=== PATIENT | female | born 1955 | race Caucasian/White ===

== ENCOUNTER 2017-09-21 10:53 | Inpatient (IN) ==
[2017-09-21] MEDS ORDERED: Sod Chloride 0.9% Inj 1,000 ML IV.SIG ONE (11:19)
[2017-09-21] MEDS ORDERED: Morphine Inj 4 MG/ML Vial IV.PUSH ONE (11:19)
--- NOTE | 2017-09-21 11:26 | ED ---
HPI General Chief Complaint: Abdominal Pain Stated Complaint: ABD pain/EVAC Time Seen by Provider: 09/21/17 11:35 Source: patient Mode of arrival: EMS Limitations: no limitations History of Present Illness MD complaint: abdominal pain Onset (ago): hour(s) (1) Pain Consistency: constant Location: epigastric Severity: moderate Severity scale (1-10): 6 Quality: fullness and sharp Radiation: none Migration to: no migration Relieving factors: nothing Exacerbating factors: nothing Associated symptoms: nausea Related Data Home Medications Medication Instructions Recorded Confirmed ascorbic acid (vitamin C) [Vitamin 1,000 mg PO Q12H 09/21/17 09/21/17 C] calcium carbonate [Calcium 500] 250 mg PO DAILY 09/21/17 09/21/17 yoxfjdzodryg-[id number]-yyhy-FA-vit K tab PO DAILY 09/21/17 [Multi For Her] omeprazole 20 mg PO DAILY 09/21/17 09/21/17 sertraline 200 mg PO DAILY 09/21/17 09/21/17 venlafaxine 37.5 mg PO DAILY 09/21/17 09/21/17 vitamin E 400 unit PO DAILY 09/21/17 09/21/17 Allergies Allergy/AdvReac Type Severity Reaction Status Date / Time amoxicillin AdvReac Nausea/Vomi Verified 09/21/17 11:04 ting Review of Systems Except as stated in HPI: all other systems reviewed are negative [facility] Medical History Medical History Diverticulosis (Acute) Hernia (Acute) Spleen enlarged (Acute) Tubal ligation status (Acute) Social History Social History Substance History: No History of Abuse Second Hand Smoke Exposure: No Smoking Status: Never smoker How Often Do You Have a Drink Containing Alcohol: Never Recent Travel in [facility] within the Last 8 Weeks: No Immunization History Tetanus Immunization: Unsure Hx Influenza Vaccine This Season: No Exam Narrative Exam Narrative: GENERAL: Well-nourished, well-developed patient in no apparent distress. SKIN: Warm and dry. HEAD: Atraumatic. Normocephalic. EYES: Pupils equal and round. No scleral icterus. No injection or drainage. ENT: No nasal bleeding or discharge. Mucous membranes pink and moist. NECK: Trachea midline. No JVD. CARDIOVASCULAR: Regular rate and rhythm. no rubs or gallops RESPIRATORY: No accessory muscle use. Clear to auscultation. Breath sounds equal bilaterally. GASTROINTESTINAL: Abdomen soft, epig/ruq/tender, nondistended. No rebound or guarding MUSCULOSKELETAL: Extremities without clubbing, cyanosis, or edema. No obvious deformities. NEUROLOGICAL: Awake and alert. No obvious cranial nerve deficits. Motor grossly within normal limits. Five out of 5 muscle strength in the arms and legs. Normal speech. PSYCHIATRIC: Appropriate mood and affect; insight and judgment normal. Course Initial Documented Vital Signs Temperature 98.0 F 09/21/17 11:00 Pulse Rate 67 09/21/17 11:00 Respiratory Rate 16 09/21/17 11:00 Blood Pressure 119/65 09/21/17 11:00 Pulse Oximetry 98 09/21/17 11:00 Last Documented Vital Signs Temperature 97.9 F 09/21/17 11:03 Pulse Rate 70 09/21/17 12:00 Respiratory Rate 16 09/21/17 12:00 Blood Pressure 113/61 09/21/17 12:00 Pulse Oximetry 100 09/21/17 12:00 Medical Decision Making Differential Diagnosis Differential Diagnosis: Small bowel obstruction versus ileus versus diverticulosis versus diverticulitis versus strangulation versus perforation Lab Data Result diagrams: 09/21/17 11:30 09/21/17 11:30 Lab Results 09/21/17 09/21/17 09/21/17 Range/Units 11:30 11:30 11:30 WBC 4.6 (4.0-11.0) th/mm3 RBC 4.55 (4.00-5.30) mil/mm3 Hgb 14.2 (11.6-15.3) gm/dL Hct 40.8 (35.0-46.0) % MCV 89.6 (80.0-100.0) fL MCH 31.2 (27.0-34.0) pg MCHC 34.8 (32.0-36.0) % RDW 14.1 (11.6-17.2) % Plt Count 95 L (150-450) th/mm3 MPV 7.1 (7.0-11.0) fL Prelim Diff (Auto) Slide review pending Neut % (Auto) 71.1 H (16.0-70.0) % Lymph % (Auto) 22.3 (9.0-44.0) % [place] % (Auto) 5.9 (0.0-8.0) % Eos % (Auto) 0.4 (0.0-4.0) % Baso % (Auto) 0.3 (0.0-2.0) % Neut # (Auto) 3.3 (1.8-7.7) th/mm3 Lymph # (Auto) 1.0 (1.0-4.8) th/mm3 [place] # (Auto) 0.3 (0.0-0.9) th/mm3 Eos # (Auto) 0.0 (0.0-0.4) th/mm3 Baso # (Auto) 0.0 (0.0-0.2) th/mm3 WBC Differential . Diff Scan Auto diff confirmed Differential Comment . Platelet Estimate Low L (Normal) Platelet Morphology Normal (Normal) RBC Morphology Normal (Normal) Sodium 142 (136-145) meq/L Potassium 3.9 (3.5-5.1) meq/L Chloride 108 H (98-107) meq/L Carbon Dioxide 23.2 (21.0-32.0) meq/L Anion Gap 11 (5-15) meq/L BUN 19 H (7-18) mg/dL Creatinine 0.78 (0.50-1.00) mg/dL Estimated GFR 74 L (>89) mL/min Random Glucose 111 H (74-106) mg/dL Calcium 8.6 (8.5-10.1) mg/dL Total Bilirubin 0.9 (0.2-1.0) mg/dL AST 140 H (15-37) U/L ALT 80 H (10-53) U/L Alkaline Phosphatase 109 (45-117) U/L Troponin I Less than 0.02 L (0.02-0.05) ng/mL Total Protein 6.5 (6.4-8.2) g/dL Albumin 3.9 (3.4-5.0) g/dL Lipase 822 H (73-393) U/L Imaging Data Radiologist's impression: ITS Impressions Abdomen/Pelvis CT 09/21/17 11:19 CONCLUSION: 1. Diffuse intrahepatic and extrahepatic ductal dilatation extending centrally to the level of the ampulla. Etiology is unclear. Consider MRCP examination for further evaluation as clinically indicated. 2. Splenomegaly. 3. Large hiatal hernia containing large portion of the stomach. 4. Normal appendix. Discharge Plan Discharge Disposition Patient Disposition: 30 Still Patient Discharge Condition Condition: Stable Discharge Details Discharge Problem: Pancreatitis Physicians Team ED Provider: Isai Garcia Primary Care Provider: Radha Rodriguez Rxs /Orders / Referrals /Forms Prescriptions: No Action ascorbic acid (vitamin C) [Vitamin C] 1,000 mg Tablet Extended Release 1,000 mg PO Q12H RF: 0 sertraline 100 mg Tablet 200 mg PO DAILY RF: 0 calcium carbonate [Calcium 500] 500 mg calcium (1,250 mg) Tablet 250 mg PO DAILY RF: 0 venlafaxine 37.5 mg Tablet 37.5 mg PO DAILY RF: 0 omeprazole 20 mg Capsule,Delayed Release(Dr/Ec) 20 mg PO DAILY RF: 0 vitamin E 400 unit Capsule 400 unit PO DAILY RF: 0 ivhnqjbcntel-vgt-xyek-FA-vit K [Multi For Her] 18 mg iron-600 mcg-40 mcg Capsule PO DAILY RF: 0 Discharge Interventions Interventions: Vital Signs Last Done: 09/21/17 12:00 Status ED Status: With Doctor
[2017-09-21 11:51] LABS: Baso % (Auto) 0.3 % (0.0-2.0); Eos % (Auto) 0.4 % (0.0-4.0); Hematocrit 40.8 % (35.0-46.0); Hemoglobin 14.2 gm/dL (11.6-15.3); Lymph % (Auto) 22.3 % (9.0-44.0); Mean Corpuscular HGB Conc 34.8 % (32.0-36.0); Mean Corpuscular Hemoglobin 31.2 pg (27.0-34.0); Mean Corpuscular Volume 89.6 fL (80.0-100.0); Mean Platelet Volume 7.1 fL (7.0-11.0); Mono # (Auto) 0.3 th/mm3 (0.0-0.9); Mono % (Auto) 5.9 % (0.0-8.0); Neut # (Auto) 3.3 th/mm3 (1.8-7.7); Neut % (Auto) 71.1 % (16.0-70.0); Platelet Count 95 th/mm3 (150-450); Red Blood Count 4.55 mil/mm3 (4.00-5.30); Red Cell Distribution Width 14.1 % (11.6-17.2); White Blood Count 4.6 th/mm3 (4.0-11.0)
[2017-09-21 12:27] LABS: Alanine Aminotransferase 80 U/L (10-53); Albumin 3.9 g/dL (3.4-5.0); Anion Gap 11 meq/L (5-15); Aspartate Aminotransferase 140 U/L (15-37); Blood Urea Nitrogen 19 mg/dL (7-18); Calcium 8.6 mg/dL (8.5-10.1); Carbon Dioxide 23.2 meq/L (21.0-32.0); Chloride 108 meq/L (98-107); Glomerular Filtration Rate 74 mL/min (>89); Glucose,Random 111 mg/dL (74-106); Lipase 822 U/L (73-393); Potassium 3.9 meq/L (3.5-5.1); Sodium 142 meq/L (136-145)
[2017-09-21 12:30] LABS: Alkaline Phosphatase 109 U/L (45-117); Total Protein 6.5 g/dL (6.4-8.2)
[2017-09-21 12:50] LABS: Platelet Morphology Normal (Normal); RBC Morphology Normal (Normal)
--- NOTE | 2017-09-21 15:53 | CT ---
EXAM DATE: 09/21/2017 12:24 PM EDT AGE/SEX: 62 years / Female INDICATIONS: Abdominal pain. CLINICAL DATA: This is the patient's initial encounter. Patient reports that signs and symptoms have been present for 3 months and indicates a pain score of 3/10. MEDICAL/SURGICAL HISTORY: Diverticulitis. Tubal ligation. RADIATION DOSE: 14.45 CTDI (mGy) COMPARISON: No prior exams available for comparison. TECHNIQUE: Multiple contiguous axial images were obtained through the abdomen. Images were obtained using multiple row detector helical technique. Using automated exposure control and adjustment of the mA and/or kV according to patient size, radiation dose was kept as low as reasonably achievable to o btain optimal diagnostic quality images. DICOM format image data is available electronically for rev iew and comparison. FINDINGS: LOWER LUNGS: The visualized lower lungs are clear. LIVER: Liver demonstrates homogeneous density. Diffuse extra and intrahepatic ductal dilatation exten ding centrally to near the level of the ampulla. Gallbladder is moderately distended. SPLEEN: Enlarged measuring 16 cm in length. PANCREAS: Unremarkable noncontrast enhanced appearance. No significant pancreatic ductal dilatation or tail atrophy. KIDNEYS: Kidneys demonstrate symmetrical enhancement and are symmetrical in size without evidence fo r radiopaque renal calculi or hydronephrosis. ADRENAL GLANDS: Unremarkable. AORTA: Mireya-aneurysmal. BOWEL/MESENTERY: Mild sigmoid diverticulosis without significant inflammatory change. Large hiatal h ernia containing large portion of the stomach. Bowel otherwise appears unremarkable. Appendix is visu alized and normal in appearance. No significant free fluid or drainable fluid collections. ABDOMINAL WALL: Intact. RETROPERITONEUM: No evidence of adenopathy in the retrocrural, para-aortic, or deep pelvic regions. BLADDER: Contours are smooth. REPRODUCTIVE: No abnormal masses or calcifications seen. BONY STRUCTURES: Unremarkable. CONCLUSION: 1. Diffuse intrahepatic and extrahepatic ductal dilatation extending centrally to the level of the a mpulla. Etiology is unclear. Consider MRCP examination for further evaluation as clinically indicated . 2. Splenomegaly. 3. Large hiatal hernia containing large portion of the stomach. 4. Normal appendix. Electronically signed by: Erasmo Wolfe MD 09/21/2017 3:51 PM EDT
[2017-09-21] MEDS ORDERED: Morphine Sulfate Inj 8 MG/ML Vial IV.PUSH PRN (16:32)
[2017-09-21] MEDS: Pantoprazole Inj 40 MG Vial IV.PUSH SCH (16:54)
[2017-09-21] MEDS: KCL 20 mEq/NACL 0.45% Inj 1,000 ML IV.CONT SCH (17:19)
--- NOTE | 2017-09-21 17:44 | P.HP ---
<Jaquelin Ponce W - Last Filed: 09/22/17 15:21> History of Present Illness Primary Care Physician: Radha Rodriguez Chief Complaint: Abdominal pain with nausea History of Present Illness: This is a 62-year-old female patient with past medical history which includes anxiety acid reflux and paraesophageal hernia being followed by Dr. Giang gastroenterology and Dr. Adhikari general surgery. Patient reports that since March she has been having intermittent abdominal pain which she believes is been worse over the past 3 months. Patient was grocery shopping this AM had a bowel movement which was followed by severe aching/stabbing abdominal pain causing her to lay on the bathroom floor of the grocery store. Patient reports associated nausea and dry heaves. Patient has been on a liquid diet per Dr. Adhikari instructions since April 07 but today had an organic bagel for breakfast. Patient denies chest pain or shortness of breath. Past medical history: anxiety acid reflux and paraesophageal hernia being followed by Dr. Giang gastroenterology and Dr. Adhikari general surgery Past surgical history: Tubal ligation, bilateral inguinal hernia repair as a child Family medical history father had prostate cancer and bladder cancer as well as hypertension Mother had diabetes cardiac disease diverticulosis and hiatal hernia Social history: Patient is lives with her Works in medical records Rare EtOH use 1-2 times per year Denies tobacco use now in the past Denies illicit drug use - Diagnosis (1) Abdominal pain (2) Pancreatitis Estimated Total Length of Stay (Days): 3 Plans for Post Hospital Care: Not yet determined Review of Systems All other systems reviewed negative except as stated in [facility] - History History Provided By: Patient - Medical History Medical History: Medical History (Last Updated 09/21/17 @ 19:45 by Ambreen Salazar RN) Anxiety Arthritis Depression Diverticulosis Hernia Pancreatitis Spleen enlarged Tubal ligation status - Surgical History Surgical History: Surgical History (Last Updated 09/21/17 @ 19:45 by Ambreen Salazar RN) Hx of section - Tobacco History Second Hand Smoke Exposure: No Tobacco Use In Past 30 Days: No Smoking Status: Never smoker - Alcohol History How Often Do You Have a Drink Containing Alcohol: Never - Substance Use History Substance History: No History of Abuse - Travel History Recent Travel in the [facility] Within the Last 8 Weeks: No - Immunization History Tetanus Immunization: Unsure Hx Influenza Vaccine This Season: No Medications and Allergies Allergies Allergy/AdvReac Type Severity Reaction Status Date / Time amoxicillin AdvReac Nausea/Vomi Verified 09/21/17 11:04 ting Home Medications Medication Instructions Recorded Confirmed Type ascorbic acid (vitamin C) [Vitamin 1,000 mg PO Q12H 09/21/17 09/21/17 History C] calcium carbonate [Calcium 500] 250 mg PO DAILY 09/21/17 09/21/17 History [id number]-vit K tab PO DAILY 09/21/17 History [Multi For Her] omeprazole 20 mg PO DAILY 09/21/17 09/21/17 History sertraline 200 mg PO DAILY 09/21/17 09/21/17 History venlafaxine 37.5 mg PO DAILY 09/21/17 09/21/17 History vitamin E 400 unit PO DAILY 09/21/17 09/21/17 History Active Medications: Active Medications Potassium Chloride/Sodium Chloride (Potassium Chlor 20 Meq/Nacl 0.45% Inj) 1, 000 mls @ 84 mls/hr IV.CONT .[id number] [facility] Last Admin: 09/21/17 17:19 Dose: 84 mls/hr Lorazepam (Ativan Inj) 1 mg IV.PUSH Q6H PRN PRN Reason: AGITATION Morphine Sulfate (Morphine Inj) 5 mg IV.PUSH Q3H PRN PRN Reason: PAIN 1-10 AND/OR FEVER >101F Last Admin: 09/21/17 16:53 Dose: 5 mg Non-Formulary Medication (Venlafaxine) 37.5 mg PO DAILY [facility] Ondansetron HCl (Zofran Inj) 4 mg IV.PUSH Q6H PRN PRN Reason: NAUSEA OR VOMITING Pantoprazole Sodium (Protonix Inj) 40 mg IV.PUSH Q24H [facility] Last Admin: 09/21/17 16:54 Dose: 40 mg Sertraline HCl (Zoloft) 200 mg PO DAILY [facility] Sodium Chloride (Ns Flush) 2 ml IV.FLUSH PRN PRN PRN Reason: FLUSH AFTER USING IV ACCESS Last Admin: 09/21/17 11:30 Dose: 2 ml Sodium Chloride (Ns Flush) 2 ml IV.FLUSH BID [facility] Sodium Chloride (Ns Flush) 2 ml IV.FLUSH PRN PRN PRN Reason: FLUSH AFTER USING IV ACCESS Exam Vital signs: Vital Signs 09/21/17 11:00 09/21/17 11:03 09/21/17 12:00 Temperature 98.0 F 97.9 F Pulse Rate 67 108 H 70 Respiratory Rate 16 16 16 Blood Pressure 119/65 108/67 113/61 Pulse Oximetry 98 99 100 09/21/17 16:00 Temperature Pulse Rate 72 Respiratory Rate 22 Blood Pressure 121/59 L Pulse Oximetry 98 Intake & Output 09/20/17 09/21/17 09/21/17 18:59 06:59 18:59 Weight 84.368 kg Narrative: GENERAL: This is a well-nourished, well-developed patient, in no apparent distress. CARDIOVASCULAR: Regular rate and rhythm RESPIRATORY: Clear to auscultation. Breath sounds equal bilaterally. GASTROINTESTINAL: Abdomen soft, tender right upper quadrant, nondistended. Normal active bowel sounds MUSCULOSKELETAL: Extremities without clubbing, cyanosis, or edema. NEURO: Alert & Oriented x4 to person, place, time, situation. Moves all ext x4 Results - Labs CBC & Chem 7: 09/22/17 08:15 09/21/17 11:30 Labs: Laboratory Results - last 24 hr 09/21/17 09/21/17 09/21/17 11:30 11:30 11:30 WBC 4.6 RBC 4.55 Hgb 14.2 Hct 40.8 MCV 89.6 MCH 31.2 MCHC 34.8 RDW 14.1 Plt Count 95 L MPV 7.1 Prelim Diff (Auto) Slide review pending Neut % (Auto) 71.1 H Lymph % (Auto) 22.3 [place] % (Auto) 5.9 Eos % (Auto) 0.4 Baso % (Auto) 0.3 Neut # (Auto) 3.3 Lymph # (Auto) 1.0 [place] # (Auto) 0.3 Eos # (Auto) 0.0 Baso # (Auto) 0.0 WBC Differential . Diff Scan Auto diff confirmed Differential Comment . Platelet Estimate Low L Platelet Morphology Normal RBC Morphology Normal Sodium 142 Potassium 3.9 Chloride 108 H Carbon Dioxide 23.2 Anion Gap 11 BUN 19 H Creatinine 0.78 Estimated GFR 74 L Random Glucose 111 H Calcium 8.6 Total Bilirubin 0.9 AST 140 H ALT 80 H Alkaline Phosphatase 109 Troponin I Less than 0.02 L Total Protein 6.5 Albumin 3.9 Lipase 822 H - Imaging Impressions Abdomen/Pelvis CT 09/21/17 11:19 CONCLUSION: 1. Diffuse intrahepatic and extrahepatic ductal dilatation extending centrally to the level of the ampulla. Etiology is unclear. Consider MRCP examination for further evaluation as clinically indicated. 2. Splenomegaly. 3. Large hiatal hernia containing large portion of the stomach. 4. Normal appendix. Caprini VTE Risk Assessment Caprini VTE Risk Assessment: No/Low Risk (score <= 1) Caprini Risk Assessment Model: Point Value = 1 Point Value = 2 Point Value = 3 Point Value = 5 Age 41-60 Minor surgery BMI > 25 kg/m2 Swollen legs Varicose veins or History of unexplained or recurrent spontaneous Oral contraceptives or hormone replacement Sepsis (< 1 month) Serious lung disease, including pneumonia (< 1 month) Abnormal pulmonary function Acute myocardial infarction Congestive heart failure (< 1 month) History of inflammatory bowel disease Medical patient at bed rest Age 61-74 Arthroscopic surgery Major open surgery (> 45 min) Laparoscopic surgery (> 45 min) Malignancy Confined to bed (> 72 hours) Immobilizing plaster cast Central venous access Age >= 75 History of VTE Family history of VTE Factor V Leiden Prothrombin [id number] Lupus anticoagulant Anticardiolipin antibodies Elevated serum homocysteine Heparin-induced thrombocytopenia Other congenital or acquired thrombophilia Stroke (< 1 month) Elective arthroplasty Hip, pelvis, or leg fracture Acute spinal cord injury (< 1 month) Prophylaxis Regimen: Total Risk Factor Score Risk Level Prophylaxis Regimen 0-1 Low Early ambulation 2 Moderate Order ONE of the following: *Sequential Compression Device (SCD) *Heparin 5000 units SQ BID 3-4 Higher Order ONE of the following medications: *Heparin 5000 units SQ TID *Enoxaparin/Lovenox 40 mg SQ daily (WT < 150 kg, CrCl > 30 mL/min) *Enoxaparin/Lovenox 30 mg SQ daily (WT < 150 kg, CrCl > 10-29 mL/min) *Enoxaparin/Lovenox 30 mg SQ BID (WT < 150 kg, CrCl > 30 mL/min) AND/OR *Sequential Compression Device (SCD) 5 or more Highest Order ONE of the following medications: *Heparin 5000 units SQ TID (Preferred with Epidurals) *Enoxaparin/Lovenox 40 mg SQ daily (WT < 150 kg, CrCl > 30 mL/min) *Enoxaparin/Lovenox 30 mg SQ daily (WT < 150 kg, CrCl > 10-29 mL/min) *Enoxaparin/Lovenox 30 mg SQ BID (WT < 150 kg, CrCl > 30 mL/min) AND *Sequential Compression Device (SCD) Assessment and Plan - Assessment (1) Abdominal pain Code(s): R10.9 - Unspecified abdominal pain Status: Acute Plan: Abdominal pain Pancreatitis Patient presents emergency department after having an episode of severe abdominal pain with dry heaves. Patient has been having intermittent abdominal pain for the past 7 months which is been worse over the past 3-4 months. Patient has a paraesophageal hernia has been followed by Dr. Adhikari and was instructed to stay on a liquid diet April 07 but this morning had an organic bagel. -Abdomen/Pelvis CT 09/21/17 11:19 reviewed and reveals: 1. Diffuse intrahepatic and extrahepatic ductal dilatation extending centrally to the level of the ampulla. Etiology is unclear. Consider MRCP examination for further evaluation as clinically indicated. 2. Splenomegaly. 3. Large hiatal hernia containing large portion of the stomach. 4. Normal appendix. -Outpatient MRCP 07/02/2017 hepatomegaly, enlarged portal vein concerning for portal hypertension, paraesophageal hernia. -Barium swallow 07/27/17 reveals large esophageal hiatal hernia encompassing two thirds of the stomach since significant GERD -CT of the abdomen and aorta 09/11/17 hepatomegaly, large hiatal hernia. Negative CTA of the abdominal aorta -Total bilirubin 0.9, AST 140, ALT 80, alkaline phosphatase 109 lipase 822 -N.p.o. IV fluids for hydration Consult GI Repeat MRCP Anxiety Continue home medications (2) Pancreatitis Code(s): K85.90 - Acute pancreatitis without necrosis or infection, unspecified Status: Acute <Kishore Amaro - Last Filed: 09/23/17 16:05> History of Present Illness Primary Care Physician: Radha Rodriguez - Diagnosis (1) Abdominal pain (2) Pancreatitis Inpatient Certification: I certify that the inpatient services were ordered in accordance with Medicare regulations governing the order. This includes certification that hospital inpatient services are reasonable and necessary and in the case of services not specified as inpatient-only under 42 CFR 419.22(n), that they are appropriately provided as inpatient services in accordance to with the 2-midnight benchmark under 43 CFR 412.3(e) [facility] - Medical History Medical History: Medical History (Last Updated 09/21/17 @ 19:45 by Ambreen Salazar RN) Anxiety Arthritis Depression Diverticulosis Hernia Pancreatitis Spleen enlarged Tubal ligation status - Surgical History Surgical History: Surgical History (Last Updated 09/21/17 @ 19:45 by Ambreen Salazar RN) Hx of section Medications and Allergies Active Medications: Active Medications Potassium Chloride/Sodium Chloride (Potassium Chlor 20 Meq/Nacl 0.45% Inj) 1, 000 mls @ 42 mls/hr IV.CONT .[id number] [facility] Last Admin: 09/23/17 05:33 Dose: Not Given Lorazepam (Ativan Inj) 1 mg IV.PUSH Q6H PRN PRN Reason: AGITATION Morphine Sulfate (Morphine Inj) 5 mg IV.PUSH Q3H PRN PRN Reason: PAIN 1-10 AND/OR FEVER >101F Last Admin: 09/22/17 21:08 Dose: 5 mg Ondansetron HCl (Zofran Inj) 4 mg IV.PUSH Q6H PRN PRN Reason: NAUSEA OR VOMITING Pantoprazole Sodium (Protonix Inj) 40 mg IV.PUSH Q24H [facility] Last Admin: 09/22/17 21:28 Dose: Not Given Sertraline HCl (Zoloft) 200 mg PO DAILY [facility] Last Admin: 09/23/17 09:58 Dose: 200 mg Sodium Chloride (Ns Flush) 2 ml IV.FLUSH BID [facility] Last Admin: 09/22/17 21:28 Dose: Not Given Sodium Chloride (Ns Flush) 2 ml IV.FLUSH PRN PRN PRN Reason: FLUSH AFTER USING IV ACCESS Venlafaxine HCl (Effexor Xr) 37.5 mg PO DAILY [facility] Last Admin: 09/23/17 15:18 Dose: 37.5 mg Exam Vital signs: Vital Signs 09/22/17 20:00 09/22/17 21:00 09/23/17 00:31 Temperature 97.8 F 98.5 F Pulse Rate 64 70 Respiratory Rate 18 14 18 Blood Pressure 122/64 118/53 L Pulse Oximetry 95 96 09/23/17 04:00 09/23/17 08:00 09/23/17 12:00 Temperature 99 F 98.7 F 98.4 F Pulse Rate 72 69 67 Respiratory Rate 18 12 14 Blood Pressure 118/56 L 115/58 L 125/58 L Pulse Oximetry 96 94 L 96 Intake & Output 09/22/17 09/23/17 09/23/17 18:59 06:59 18:59 Intake Total 1000 / 1000 Balance 1000 / 1000 Weight 84.8 kg Intake: IV 1000 / 1000 Potassium Chlor 20 mEq/NACL 0. 1000 / 1000 45% Inj 1,000 ML @ 84 mls/hr IV .CONT .[id number] [facility] Rx#:[id number] Oral 0 / 0 Other: # Voids 1 2 Date of Last Bowel Movement 09/21/17 Results - Labs CBC & Chem 7: 09/23/17 06:35 09/23/17 06:35 Labs: Laboratory Results - last 24 hr 09/22/17 09/22/17 09/23/17 15:15 15:15 06:35 WBC 3.8 L RBC 4.31 Hgb 13.2 Hct 38.5 MCV 89.3 MCH 30.6 MCHC 34.3 RDW 14.1 Plt Count 87 L MPV 7.2 Prelim Diff (Auto) Slide review pending Neut % (Auto) 72.5 H Lymph % (Auto) 20.0 [place] % (Auto) 6.2 Eos % (Auto) 0.9 Baso % (Auto) 0.4 Neut # (Auto) 2.8 Lymph # (Auto) 0.[address] [place] # (Auto) 0.2 Eos # (Auto) 0.0 Baso # (Auto) 0.0 WBC Differential . Diff Scan Auto diff confirmed Differential Comment . Platelet Estimate Low L Platelet Morphology Normal Sodium 143 Potassium 4.1 Chloride 109 H Carbon Dioxide 24.9 Anion Gap 9 BUN 10 Creatinine 0.73 Estimated GFR 80 L Random Glucose 86 Calcium 8.5 Total Bilirubin 1.0 AST 444 H ALT 812 H Alkaline Phosphatase 154 H Total Protein 6.4 Albumin 3.6 Lipase 2224 H 2076 H 09/23/17 06:35 WBC RBC Hgb Hct MCV MCH MCHC RDW Plt Count MPV Prelim Diff (Auto) Neut % (Auto) Lymph % (Auto) [place] % (Auto) Eos % (Auto) Baso % (Auto) Neut # (Auto) Lymph # (Auto) [place] # (Auto) Eos # (Auto) Baso # (Auto) WBC Differential Diff Scan Differential Comment Platelet Estimate Platelet Morphology Sodium 142 Potassium 4.0 Chloride 109 H Carbon Dioxide 21.9 Anion Gap 11 BUN 12 Creatinine 0.71 Estimated GFR 83 L Random Glucose 89 Calcium 8.8 Total Bilirubin 0.8 AST 192 H ALT 550 H Alkaline Phosphatase 131 H Total Protein 6.2 L Albumin 3.4 Lipase 352 - Imaging Impressions Hepatobiliary Scan Nuclear Medicine 09/22/17 12:19 CONCLUSION: 1. No gallbladder activity. Delayed imaging will be obtained. Caprini VTE Risk Assessment Caprini Risk Assessment Model: Point Value = 1 Point Value = 2 Point Value = 3 Point Value = 5 Age 41-60 Minor surgery BMI > 25 kg/m2 Swollen legs Varicose veins or History of unexplained or recurrent spontaneous Oral contraceptives or hormone replacement Sepsis (< 1 month) Serious lung disease, including pneumonia (< 1 month) Abnormal pulmonary function Acute myocardial infarction Congestive heart failure (< 1 month) History of inflammatory bowel disease Medical patient at bed rest Age 61-74 Arthroscopic surgery Major open surgery (> 45 min) Laparoscopic surgery (> 45 min) Malignancy Confined to bed (> 72 hours) Immobilizing plaster cast Central venous access Age >= 75 History of VTE Family history of VTE Factor V Leiden Prothrombin [id number] Lupus anticoagulant Anticardiolipin antibodies Elevated serum homocysteine Heparin-induced thrombocytopenia Other congenital or acquired thrombophilia Stroke (< 1 month) Elective arthroplasty Hip, pelvis, or leg fracture Acute spinal cord injury (< 1 month) Prophylaxis Regimen: Total Risk Factor Score Risk Level Prophylaxis Regimen 0-1 Low Early ambulation 2 Moderate Order ONE of the following: *Sequential Compression Device (SCD) *Heparin 5000 units SQ BID 3-4 Higher Order ONE of the following medications: *Heparin 5000 units SQ TID *Enoxaparin/Lovenox 40 mg SQ daily (WT < 150 kg, CrCl > 30 mL/min) *Enoxaparin/Lovenox 30 mg SQ daily (WT < 150 kg, CrCl > 10-29 mL/min) *Enoxaparin/Lovenox 30 mg SQ BID (WT < 150 kg, CrCl > 30 mL/min) AND/OR *Sequential Compression Device (SCD) 5 or more Highest Order ONE of the following medications: *Heparin 5000 units SQ TID (Preferred with Epidurals) *Enoxaparin/Lovenox 40 mg SQ daily (WT < 150 kg, CrCl > 30 mL/min) *Enoxaparin/Lovenox 30 mg SQ daily (WT < 150 kg, CrCl > 10-29 mL/min) *Enoxaparin/Lovenox 30 mg SQ BID (WT < 150 kg, CrCl > 30 mL/min) AND *Sequential Compression Device (SCD) Assessment and Plan - Assessment (1) Abdominal pain Code(s): R10.9 - Unspecified abdominal pain Status: Acute (2) Pancreatitis Code(s): K85.90 - Acute pancreatitis without necrosis or infection, unspecified Status: Acute - Attending Attestation Patient examined. Assessment and plan formulated with Jaquelin GONZALEZ I agree with the above. <Jaquelin Ponce W - Last Filed: 09/22/17 15:21> (2) Pancreatitis Qualifiers: Chronicity: acute Pancreatitis type: unspecified pancreatitis type Acute pancreatitis complication: unspecified Qualified Code(s): K85.90 - Acute pancreatitis without necrosis or infection, unspecified <Kishore Amaro - Last Filed: 09/23/17 16:05> (2) Pancreatitis Qualifiers: Chronicity: acute Pancreatitis type: unspecified pancreatitis type Acute pancreatitis complication: unspecified Qualified Code(s): K85.90 - Acute pancreatitis without necrosis or infection, unspecified
--- NOTE | 2017-09-21 18:38 | MR ---
EXAM DATE: 09/21/2017 6:07 PM EDT AGE/SEX: 62 years / Female INDICATIONS: Abdominal pain. CLINICAL DATA: This is the patient's initial encounter. Patient reports that signs and symptoms have been present for 1 day and indicates a pain score of 4/10. MEDICAL/SURGICAL HISTORY: None. Tubal ligation. Inguinal hernia repair. COMPARISON: [facility] [place], CT ABDOMEN & PELVIS W/O CONTRAST, 09/21/2017. . TECHNIQUE: Multiplanar, multisequence images of the abdomen were obtained without contrast including dedicated cholangiographic images. FINDINGS: The liver is enlarged. There is intrahepatic and extrahepatic biliary ductal dilatation. N o definite filling defect is identified within the distal common bile duct. The gallbladder is disten ded and contains multiple gallstones. ERCP may be helpful for further evaluation of this patient if c linically indicated. The spleen is enlarged. There is a large hiatal hernia. No definite pancreatic m ass is identified. CONCLUSION: 1. Intrahepatic and extrahepatic biliary ductal dilatation without definite filling defect identifie d. ERCP may be helpful for further evaluation and possible treatment of this patient if clinically in dicated. 2. Cholelithiasis. 3. Hepatosplenomegaly. 4. Large hiatal hernia. Electronically signed by: Gordon Wise MD 09/21/2017 6:36 PM EDT
--- NOTE | 2017-09-21 18:51 | XR ---
EXAM DATE: 09/21/2017 6:23 PM EDT AGE/SEX: 62 years / Female INDICATIONS: Cough. Congestion. CLINICAL DATA: This is the patient's initial encounter. Patient reports that signs and symptoms have been present for 3 days and indicates a pain score of 4/10. MEDICAL/SURGICAL HISTORY: None. None. COMPARISON: No prior exams available for comparison. FINDINGS: The heart is normal. There is a large hiatal hernia. The pulmonary vascular pattern is normal. The samuel ngs are clear. CONCLUSION: 1. No acute cardiopulmonary disease. 2. Large hiatal hernia. Electronically signed by: Gordon Wise MD 09/21/2017 6:49 PM EDT
[2017-09-22 01:58] LABS: Calcium 8.9 mg/dL (8.5-10.1); Triglycerides 93 mg/dL (42-150)
[2017-09-22] MEDS: KCL 20 mEq/NACL 0.45% Inj 1,000 ML IV.CONT SCH ×2 (03:42→16:45)
[2017-09-22] MEDS: Sertraline 100 MG Tablet PO SCH (08:54)
[2017-09-22] MEDS ORDERED: VENLAFAXINE 37.5 MG PO SCH (09:00)
[2017-09-22 09:25] LABS: Baso % (Auto) 0.2 % (0.0-2.0); Eos % (Auto) 0.7 % (0.0-4.0); Hematocrit 39.2 % (35.0-46.0); Hemoglobin 13.7 gm/dL (11.6-15.3); Lymph # (Auto) 0.6 th/mm3 (1.0-4.8); Lymph % (Auto) 12.3 % (9.0-44.0); Mean Corpuscular HGB Conc 34.9 % (32.0-36.0); Mean Corpuscular Hemoglobin 31.2 pg (27.0-34.0); Mean Corpuscular Volume 89.6 fL (80.0-100.0); Mono # (Auto) 0.3 th/mm3 (0.0-0.9); Mono % (Auto) 6.4 % (0.0-8.0); Neut # (Auto) 3.9 th/mm3 (1.8-7.7); Neut % (Auto) 80.4 % (16.0-70.0); Platelet Count 88 th/mm3 (150-450); Red Blood Count 4.38 mil/mm3 (4.00-5.30); Red Cell Distribution Width 13.9 % (11.6-17.2); White Blood Count 4.9 th/mm3 (4.0-11.0)
[2017-09-22 10:41] LABS: Platelet Morphology Normal (Normal)
--- NOTE | 2017-09-22 12:47 | P.CONGI ---
History of Present Illness Consult reason: Abdominal pain Chief complaint: acute pancreatitis, choledocholithasis History of Present Illness: This is a 62-year-old female who came to the hospital on 09/21/2017 with worsening symptoms of mid abdominal pain, dull ache which is fairly constant but does wax and wane in severity with sharp pain. Onset of initial symptoms was approximately 7 months months ago but have worsened over the past 3 months up until the last 24 hours. On 09/21/2017 patient was grocery shopping and was hit with an acute onset of severe stabbing abdominal pain in which caused her to be unable to ambulate or move. She also had associated symptoms of nausea , vomiting dry heaves patient has a recent significant medical history which includes workup per GI, Dr. Saldivar. Test include CT of the abdomen and aorta, lab work, outpatient MRCP, barium swallow, and EGD colonoscopy. Patient has been found to have large esophageal hiatal hernia, GERD, portal hypertension concerning and was pending surgical intervention with Dr. Adhikari after all testing has been completed. Patient notes that her symptoms have been alleviated by staying on a liquid diet for the most part. Current labs show hemoglobin 13.7, platelet count 88, and elevated lipase level 822 concerning for pancreatitis. Gastroenterology was consulted to assist in her care and evaluate her pancreatitis and mid abdominal pain. Patient denies any current nausea, vomiting, diarrhea or constipation this a.m. during the exam. Patient has no family history of colon cancer but states her mother did have a hiatal hernia. CAT scan of the abdomen pelvis shows diffuse intrahepatic and extrahepatic ductal dilatation extending centrally into the level of the ampulla. Unclear etiology. Splenomegaly and large hiatal hernia containing large portion of the stomach. Appendix is normal. <Faiza Jensen - Last Filed: 09/22/17 12:47> Review of Systems All other systems reviewed negative except as stated in HPI <Faiza Jensen - Last Filed: 09/22/17 12:47> PMFSH - History History Provided By: Patient - Medical History Medical History: Medical History (Last Updated 09/21/17 @ 19:45 by Ambreen Salazar RN) Anxiety Arthritis Depression Diverticulosis Hernia Pancreatitis Spleen enlarged Tubal ligation status - Surgical History Surgical History: Surgical History (Last Updated 09/21/17 @ 19:45 by Ambreen Salazar RN) Hx of section - Tobacco History Second Hand Smoke Exposure: No Tobacco Use In Past 30 Days: No Smoking Status: Never smoker - Alcohol History How Often Do You Have a Drink Containing Alcohol: Monthly or less - Substance Use History Substance History: No History of Abuse - Travel History Recent Travel in the [place] Within the Last 8 Weeks: No Recent Travel Out of the Country Within the Last 8 Weeks: No - Immunization History Tetanus Immunization: Unsure Hx Influenza Vaccine This Season: No <CamilaFaiza Lisa - Last Filed: 09/22/17 12:47> - Medical History Medical History: Medical History (Last Updated 09/21/17 @ 19:45 by Ambreen Salazar, RUPERTO) Anxiety Arthritis Depression Diverticulosis Hernia Pancreatitis Spleen enlarged Tubal ligation status - Surgical History Surgical History: Surgical History (Last Updated 09/21/17 @ 19:45 by Ambreen Salazar, RN) Hx of section <ArslanPaoloe - Last Filed: 09/22/17 18:51> Medications and Allergies Active Medications: Active Medications Potassium Chloride/Sodium Chloride (Potassium Chlor 20 Meq/Nacl 0.45% Inj) 1, 000 mls @ 84 mls/hr IV.CONT .[id number] [facility] Last Admin: 09/22/17 03:42 Dose: 84 mls/hr Lorazepam (Ativan Inj) 1 mg IV.PUSH Q6H PRN PRN Reason: AGITATION Morphine Sulfate (Morphine Inj) 5 mg IV.PUSH Q3H PRN PRN Reason: PAIN 1-10 AND/OR FEVER >101F Last Admin: 09/21/17 16:53 Dose: 5 mg Non-Formulary Medication (Venlafaxine) 37.5 mg PO DAILY [facility] Last Admin: 09/22/17 09:47 Dose: 37.5 mg Ondansetron HCl (Zofran Inj) 4 mg IV.PUSH Q6H PRN PRN Reason: NAUSEA OR VOMITING Pantoprazole Sodium (Protonix Inj) 40 mg IV.PUSH Q24H [facility] Last Admin: 09/21/17 16:54 Dose: 40 mg Sertraline HCl (Zoloft) 200 mg PO DAILY [facility] Last Admin: 09/22/17 08:54 Dose: 200 mg Sodium Chloride (Ns Flush) 2 ml IV.FLUSH PRN PRN PRN Reason: FLUSH AFTER USING IV ACCESS Last Admin: 09/21/17 11:30 Dose: 2 ml Sodium Chloride (Ns Flush) 2 ml IV.FLUSH BID [facility] Last Admin: 09/22/17 08:53 Dose: 2 ml Sodium Chloride (Ns Flush) 2 ml IV.FLUSH PRN PRN PRN Reason: FLUSH AFTER USING IV ACCESS <Faiza Jensen - Last Filed: 09/22/17 12:47> Active Medications: Active Medications Potassium Chloride/Sodium Chloride (Potassium Chlor 20 Meq/Nacl 0.45% Inj) 1, 000 mls @ 84 mls/hr IV.CONT .[id number] [facility] Last Admin: 09/22/17 16:45 Dose: 84 mls/hr Lorazepam (Ativan Inj) 1 mg IV.PUSH Q6H PRN PRN Reason: AGITATION Morphine Sulfate (Morphine Inj) 5 mg IV.PUSH Q3H PRN PRN Reason: PAIN 1-10 AND/OR FEVER >101F Last Admin: 09/21/17 16:53 Dose: 5 mg Non-Formulary Medication (Venlafaxine) 37.5 mg PO DAILY [facility] Last Admin: 09/22/17 09:47 Dose: 37.5 mg Ondansetron HCl (Zofran Inj) 4 mg IV.PUSH Q6H PRN PRN Reason: NAUSEA OR VOMITING Pantoprazole Sodium (Protonix Inj) 40 mg IV.PUSH Q24H [facility] Last Admin: 09/21/17 16:54 Dose: 40 mg Sertraline HCl (Zoloft) 200 mg PO DAILY [facility] Last Admin: 09/22/17 08:54 Dose: 200 mg Sodium Chloride (Ns Flush) 2 ml IV.FLUSH PRN PRN PRN Reason: FLUSH AFTER USING IV ACCESS Last Admin: 09/21/17 11:30 Dose: 2 ml Sodium Chloride (Ns Flush) 2 ml IV.FLUSH BID [facility] Last Admin: 09/22/17 08:53 Dose: 2 ml Sodium Chloride (Ns Flush) 2 ml IV.FLUSH PRN PRN PRN Reason: FLUSH AFTER USING IV ACCESS <Eneida Mcdaniels - Last Filed: 09/22/17 18:51> Allergies Allergy/AdvReac Type Severity Reaction Status Date / Time amoxicillin AdvReac Nausea/Vomi Verified 09/21/17 11:04 ting Home Medications Medication Instructions Recorded Confirmed Type ascorbic acid (vitamin C) [Vitamin 1,000 mg PO Q12H 09/21/17 09/21/17 History C] calcium carbonate [Calcium 500] 250 mg PO DAILY 09/21/17 09/21/17 History [id number] K tab PO DAILY 09/21/17 History [Multi For Her] omeprazole 20 mg PO DAILY 09/21/17 09/21/17 History sertraline 200 mg PO DAILY 09/21/17 09/21/17 History venlafaxine 37.5 mg PO DAILY 09/21/17 09/21/17 History vitamin E 400 unit PO DAILY 09/21/17 09/21/17 History Exam Vital signs: Vital Signs 09/21/17 16:00 09/21/17 18:29 09/21/17 19:08 Temperature 98.3 F Pulse Rate 72 82 82 Respiratory Rate 22 16 15 Blood Pressure 121/59 L 108/77 119/59 L Pulse Oximetry 98 97 98 09/21/17 23:22 09/21/17 23:33 09/22/17 03:23 Temperature 98.5 F 99.1 F 98.6 F Pulse Rate 74 87 66 Respiratory Rate 16 18 16 Blood Pressure 110/56 L 97/56 L 106/53 L Pulse Oximetry 98 99 94 L 09/22/17 08:00 09/22/17 11:55 Temperature 98.2 F 98 F Pulse Rate 73 77 Respiratory Rate 18 16 Blood Pressure 108/59 L 113/65 Pulse Oximetry 97 97 Intake & Output 09/21/17 09/22/17 09/22/17 18:59 06:59 18:59 Intake Total 1000 / 1000 886 / 886 0 / 0 Balance 1000 / 1000 886 / 886 0 / 0 Weight 84.368 kg Intake: IV 1000 / 1000 886 / 886 Potassium Chlor 20 mEq/NACL 0. 886 / 886 45% Inj 1,000 ML @ 84 mls/hr IV .CONT .[id number] [facility] Rx#:[id number] NS Inj 1,000 ML @ Wide Open IV. 1000 / 1000 SIG BOLUS ONE Rx#:[id number] Oral 0 / 0 0 / 0 Other: # Voids 0 1 Date of Last Bowel Movement 07/06/18 - Constitutional moderate distress, average body habitus, cooperative - Routine HEENT Exam Head: Present: normocephalic, atraumatic Eye: Present: EOMI ENT: Present: mucous membranes moist - Routine Neck Exam Present: supple - Routine Respiratory Exam Present: CTA bilaterally (Without obvious wheezing or rhonchi) - Routine Cardiovascular Exam Present: RRR - Routine Abdominal Exam Present: normoactive bowel sounds, distended, guarding (Mild guarding to upper mid abdomen, dull ache with some sharp pain off and on) - Routine Extremities Exam Present: full ROM - Routine Skin Exam Present: intact - Routine Neurological Exam Present: alert, oriented X3, normal speech <Faiza Jensen - Last Filed: 09/22/17 12:47> Vital signs: Vital Signs 09/21/17 19:08 09/21/17 23:22 09/21/17 23:33 Temperature 98.3 F 98.5 F 99.1 F Pulse Rate 82 74 87 Respiratory Rate 15 16 18 Blood Pressure 119/59 L 110/56 L 97/56 L Pulse Oximetry 98 98 99 09/22/17 03:23 09/22/17 08:00 09/22/17 11:55 Temperature 98.6 F 98.2 F 98 F Pulse Rate 66 73 77 Respiratory Rate 16 18 16 Blood Pressure 106/53 L 108/59 L 113/65 Pulse Oximetry 94 L 97 97 09/22/17 14:53 Temperature 98.5 F Pulse Rate 72 Respiratory Rate 14 Blood Pressure 113/61 Pulse Oximetry 94 L Intake & Output 09/21/17 09/22/17 09/22/17 18:59 06:59 18:59 Intake Total 1000 / 1000 886 / 886 1000 / 1000 Balance 1000 / 1000 886 / 886 1000 / 1000 Weight 84.368 kg Intake: IV 1000 / 1000 886 / 886 1000 / 1000 Potassium Chlor 20 mEq/NACL 0. 886 / 886 1000 / 1000 45% Inj 1,000 ML @ 84 mls/hr IV .CONT .[id number] [facility] Rx#:[id number] NS Inj 1,000 ML @ Wide Open IV. 1000 / 1000 SIG BOLUS ONE Rx#:[id number] Oral 0 / 0 0 / 0 Other: # Voids 0 1 Date of Last Bowel Movement 09/21/17 <Bratu,Eneida - Last Filed: 09/22/17 18:51> Results - Labs CBC & Chem 7: 09/22/17 08:15 09/21/17 11:30 Labs: Laboratory Results - last 24 hr 09/21/17 09/21/17 09/21/17 11:30 11:30 11:30 WBC RBC Hgb Hct MCV MCH MCHC RDW Plt Count MPV Prelim Diff (Auto) Neut % (Auto) Lymph % (Auto) [place] % (Auto) Eos % (Auto) Baso % (Auto) Neut # (Auto) Lymph # (Auto) [place] # (Auto) Eos # (Auto) Baso # (Auto) WBC Differential . Diff Scan Auto diff confirmed Differential Comment Platelet Estimate Low L Platelet Morphology Normal RBC Morphology Normal Sodium 142 Potassium 3.9 Chloride 108 H Carbon Dioxide 23.2 Anion Gap 11 BUN 19 H Creatinine 0.78 Estimated GFR 74 L Random Glucose 111 H Calcium 8.6 8.9 Total Bilirubin 0.9 AST 140 H ALT 80 H Alkaline Phosphatase 109 C-Reactive Protein Less than 0.29 Total Protein 6.5 Albumin 3.9 Triglycerides 93 Lipase 822 H 09/22/17 08:15 WBC 4.9 RBC 4.38 Hgb 13.7 Hct 39.2 MCV 89.6 MCH 31.2 MCHC 34.9 RDW 13.9 Plt Count 88 L MPV 7.0 Prelim Diff (Auto) Slide review pending Neut % (Auto) 80.4 H Lymph % (Auto) 12.3 [place] % (Auto) 6.4 Eos % (Auto) 0.7 Baso % (Auto) 0.2 Neut # (Auto) 3.9 Lymph # (Auto) 0.6 L [place] # (Auto) 0.3 Eos # (Auto) 0.0 Baso # (Auto) 0.0 WBC Differential . Diff Scan Auto diff confirmed Differential Comment . Platelet Estimate Low L Platelet Morphology Normal RBC Morphology Sodium Potassium Chloride Carbon Dioxide Anion Gap BUN Creatinine Estimated GFR Random Glucose Calcium Total Bilirubin AST ALT Alkaline Phosphatase C-Reactive Protein Total Protein Albumin Triglycerides Lipase - Imaging Impressions Chest X-Ray 09/21/17 00:00 CONCLUSION: 1. No acute cardiopulmonary disease. 2. Large hiatal hernia. Cholangiopancreatography MRI 09/21/17 00:00 CONCLUSION: 1. Intrahepatic and extrahepatic biliary ductal dilatation without definite filling defect identified. ERCP may be helpful for further evaluation and possible treatment of this patient if clinically indicated. 2. Cholelithiasis. 3. Hepatosplenomegaly. 4. Large hiatal hernia. Abdomen/Pelvis CT 09/21/17 11:19 CONCLUSION: 1. Diffuse intrahepatic and extrahepatic ductal dilatation extending centrally to the level of the ampulla. Etiology is unclear. Consider MRCP examination for further evaluation as clinically indicated. 2. Splenomegaly. 3. Large hiatal hernia containing large portion of the stomach. 4. Normal appendix. <Faiza Jensen - Last Filed: 09/22/17 12:47> - Labs CBC & Chem 7: 09/22/17 08:15 09/22/17 15:15 Labs: Laboratory Results - last 24 hr 09/21/17 09/22/17 09/22/17 11:30 08:15 15:15 WBC 4.9 RBC 4.38 Hgb 13.7 Hct 39.2 MCV 89.6 MCH 31.2 MCHC 34.9 RDW 13.9 Plt Count 88 L MPV 7.0 Prelim Diff (Auto) Slide review pending Neut % (Auto) 80.4 H Lymph % (Auto) 12.3 [place] % (Auto) 6.4 Eos % (Auto) 0.7 Baso % (Auto) 0.2 Neut # (Auto) 3.9 Lymph # (Auto) 0.6 L [place] # (Auto) 0.3 Eos # (Auto) 0.0 Baso # (Auto) 0.0 WBC Differential . Diff Scan Auto diff confirmed Differential Comment . Platelet Estimate Low L Platelet Morphology Normal Sodium Potassium Chloride Carbon Dioxide Anion Gap BUN Creatinine Estimated GFR Random Glucose Calcium 8.9 Total Bilirubin AST ALT Alkaline Phosphatase C-Reactive Protein Less than 0.29 Total Protein Albumin Triglycerides 93 Lipase 2224 H 09/22/17 15:15 WBC RBC Hgb Hct MCV MCH MCHC RDW Plt Count MPV Prelim Diff (Auto) Neut % (Auto) Lymph % (Auto) [place] % (Auto) Eos % (Auto) Baso % (Auto) Neut # (Auto) Lymph # (Auto) [place] # (Auto) Eos # (Auto) Baso # (Auto) WBC Differential Diff Scan Differential Comment Platelet Estimate Platelet Morphology Sodium 143 Potassium 4.1 Chloride 109 H Carbon Dioxide 24.9 Anion Gap 9 BUN 10 Creatinine 0.73 Estimated GFR 80 L Random Glucose 86 Calcium 8.5 Total Bilirubin 1.0 AST 444 H ALT 812 H Alkaline Phosphatase 154 H C-Reactive Protein Total Protein 6.4 Albumin 3.6 Triglycerides Lipase 2076 H - Imaging Impressions Chest X-Ray 09/21/17 00:00 CONCLUSION: 1. No acute cardiopulmonary disease. 2. Large hiatal hernia. Hepatobiliary Scan Nuclear Medicine 09/22/17 12:19 CONCLUSION: 1. No gallbladder activity. Delayed imaging will be obtained. <Eneida Mcdaniels - Last Filed: 09/22/17 18:51> Assessment and Plan (1) Pancreatitis Status: Acute Code(s): K85.90 - Acute pancreatitis without necrosis or infection, unspecified (2) Choledocholithiasis Status: Acute Code(s): K80.50 - Calculus of bile duct without cholangitis or cholecystitis without obstruction (3) Abdominal pain Status: Acute Code(s): R10.9 - Unspecified abdominal pain - Plan 62-year-old female who has been followed on an outpatient basis per Dr. Saldivar for her mid upper abdominal pain which has continued to worsen to the point of her admission 09/21/2017. She has had multiple outpatient procedures including EGD colonoscopy, barium swallow CT of the abdomen and aorta. And outpatient MRCP performed on 07/02/2017 findings at that time showed hepatomegaly and enlarged portal vein concerning for portal hypertension. She is also been diagnosed with large para esophageal hernia and has been followed per Dr. Adhikari for pending surgical repair after all outpatient testing has been completed. Patient underwent severe mid abdominal pain with immediate nausea and dry heaves within the past 24 hours while shopping she was brought to the emergency room for further evaluation. Current lipase level elevated 822, hemoglobin 13.7 platelet count 88. Patient notes liquid diet since April 07 for the most part. Acute pancreatitis, per CT scan. Cholelithiasis, CT of the abdomen and pelvis and MRCP performed which shows diffuse intrahepatic and extrahepatic ductal dilatation extending centrally to the level of the ampulla. Gastroenterology has been consulted to consider possible ERCP. Nausea, dry heaves probably secondary to #1 Mid upper abdominal pain acute on chronic, patient has been found to have large paraesophageal hernia which was pending repair per Dr. Adhikari. Plan N.p.o. Consider ERCP, TBA, probable today or in a.m. Monitor labs Anti-medics PPI IV Pain meds per attending Hydration IV Bowel regimen as needed Supportive care Further recommendations to follow Patient was seen per myself and Dr. Mcdaniels, this note was written on her behalf <Faiza Jensen - Last Filed: 09/22/17 12:47> (1) Pancreatitis Status: Acute Code(s): K85.90 - Acute pancreatitis without necrosis or infection, unspecified (2) Choledocholithiasis Status: Acute Code(s): K80.50 - Calculus of bile duct without cholangitis or cholecystitis without obstruction (3) Abdominal pain Status: Acute Code(s): R10.9 - Unspecified abdominal pain - Attending Attestation seen, examined agree with above <Eneida Mcdaniels - Last Filed: 09/22/17 18:51> <Faiza Jensen - Last Filed: 09/22/17 12:47> (1) Pancreatitis Qualifiers: Chronicity: acute Pancreatitis type: unspecified pancreatitis type Acute pancreatitis complication: unspecified Qualified Code(s): K85.90 - Acute pancreatitis without necrosis or infection, unspecified <Eneida Mcdaniels - Last Filed: 09/22/17 18:51> (1) Pancreatitis Qualifiers: Chronicity: acute Pancreatitis type: unspecified pancreatitis type Acute pancreatitis complication: unspecified Qualified Code(s): K85.90 - Acute pancreatitis without necrosis or infection, unspecified
--- NOTE | 2017-09-22 13:07 | P.PNIM ---
Subjective Interval history: Follow up: abd pain, pancreatitis and abnormal CT abd Patient reports feeling better than yesterday Physical Exam Vital signs: Vital Signs 09/21/17 16:00 09/21/17 18:29 09/21/17 19:08 Temperature 98.3 F Pulse Rate 72 82 82 Respiratory Rate 22 16 15 Blood Pressure 121/59 L 108/77 119/59 L Pulse Oximetry 98 97 98 09/21/17 23:22 09/21/17 23:33 09/22/17 03:23 Temperature 98.5 F 99.1 F 98.6 F Pulse Rate 74 87 66 Respiratory Rate 16 18 16 Blood Pressure 110/56 L 97/56 L 106/53 L Pulse Oximetry 98 99 94 L 09/22/17 08:00 09/22/17 11:55 Temperature 98.2 F 98 F Pulse Rate 73 77 Respiratory Rate 18 16 Blood Pressure 108/59 L 113/65 Pulse Oximetry 97 97 Intake & Output 09/21/17 09/22/17 09/22/17 18:59 06:59 18:59 Intake Total 1000 / 1000 886 / 886 0 / 0 Balance 1000 / 1000 886 / 886 0 / 0 Weight 84.368 kg Intake: IV 1000 / 1000 886 / 886 Potassium Chlor 20 mEq/NACL 0. 886 / 886 45% Inj 1,000 ML @ 84 mls/hr IV .CONT .[id number] [facility] Rx#:[id number] NS Inj 1,000 ML @ Wide Open IV. 1000 / 1000 SIG BOLUS ONE Rx#:[id number] Oral 0 / 0 0 / 0 Other: # Voids 0 1 Date of Last Bowel Movement 09/21/17 Narrative: GENERAL: This is a thin, well-developed patient, in no apparent distress. SKIN: laceration right posterior scalp stu present edges well approximated CARDIOVASCULAR: Regular rate and rhythm with 2/6 murmur present RESPIRATORY: Clear to auscultation. Breath sounds equal bilaterally. GASTROINTESTINAL: Abdomen soft, non-tender, nondistended. Normal active bowel sounds MUSCULOSKELETAL: Extremities without clubbing, cyanosis, or edema. NEURO: Alert & Oriented x4 to person, place, time, situation. Moves all ext x4 Results - Labs CBC & Chem 7: 09/23/17 06:35 09/23/17 06:35 Laboratory Results - last 24 hr 09/21/17 09/22/17 11:30 08:15 WBC 4.9 RBC 4.38 Hgb 13.7 Hct 39.2 MCV 89.6 MCH 31.2 MCHC 34.9 RDW 13.9 Plt Count 88 L MPV 7.0 Prelim Diff (Auto) Slide review pending Neut % (Auto) 80.4 H Lymph % (Auto) 12.3 [place] % (Auto) 6.4 Eos % (Auto) 0.7 Baso % (Auto) 0.2 Neut # (Auto) 3.9 Lymph # (Auto) 0.6 L [place] # (Auto) 0.3 Eos # (Auto) 0.0 Baso # (Auto) 0.0 WBC Differential . Diff Scan Auto diff confirmed Differential Comment . Platelet Estimate Low L Platelet Morphology Normal Calcium 8.9 C-Reactive Protein Less than 0.29 Triglycerides 93 - Imaging Impressions Chest X-Ray 09/21/17 00:00 CONCLUSION: 1. No acute cardiopulmonary disease. 2. Large hiatal hernia. Cholangiopancreatography MRI 09/21/17 00:00 CONCLUSION: 1. Intrahepatic and extrahepatic biliary ductal dilatation without definite filling defect identified. ERCP may be helpful for further evaluation and possible treatment of this patient if clinically indicated. 2. Cholelithiasis. 3. Hepatosplenomegaly. 4. Large hiatal hernia. Abdomen/Pelvis CT 09/21/17 11:19 CONCLUSION: 1. Diffuse intrahepatic and extrahepatic ductal dilatation extending centrally to the level of the ampulla. Etiology is unclear. Consider MRCP examination for further evaluation as clinically indicated. 2. Splenomegaly. 3. Large hiatal hernia containing large portion of the stomach. 4. Normal appendix. Assessment and Plan - Assessment (1) Abdominal pain Code(s): R10.9 - Unspecified abdominal pain Status: Acute Plan: Abdominal pain Pancreatitis Patient presents emergency department after having an episode of severe abdominal pain with dry heaves. Patient has been having intermittent abdominal pain for the past 7 months which is been worse over the past 3-4 months. Patient has a paraesophageal hernia has been followed by Dr. Adhikari and was instructed to stay on a liquid diet April 07 but this morning had an organic bagel. -Abdomen/Pelvis CT 09/21/17 11:19 reviewed and reveals: 1. Diffuse intrahepatic and extrahepatic ductal dilatation extending centrally to the level of the ampulla. Etiology is unclear. Consider MRCP examination for further evaluation as clinically indicated. 2. Splenomegaly. 3. Large hiatal hernia containing large portion of the stomach. 4. Normal appendix. -Outpatient MRCP 07/02/2017 hepatomegaly, enlarged portal vein concerning for portal hypertension, paraesophageal hernia. -Barium swallow 07/27/17 reveals large esophageal hiatal hernia encompassing two thirds of the stomach since significant GERD -CT of the abdomen and aorta 09/11/17 hepatomegaly, large hiatal hernia. Negative CTA of the abdominal aorta -on admission Total bilirubin 0.9, AST 140, ALT 80, alkaline phosphatase 109 lipase 822 -(09/22/17) Total bilirubin 1.0, AST 444, ALT 812, alkaline phosphatase 154 lipase 2075 -N.p.o. IV fluids for hydration Repeat MRCP 09/21/17 reveals: 1. Intrahepatic and extrahepatic biliary ductal dilatation without definite filling defect identified. ERCP may be helpful for further evaluation and possible treatment of this patient if clinically indicated. 2. Cholelithiasis. 3. Hepatosplenomegaly. 4. Large hiatal hernia. Consult GI, appreciate input. plan for ERCP likely Sunday repeat CMP and lipase pending for today Anxiety Continue home medications (2) Pancreatitis Code(s): K85.90 - Acute pancreatitis without necrosis or infection, unspecified Status: Acute - Plan Patient examined. Assessment and plan formulated with Jaquelin Ponce PA-C. I agree with the above. (2) Pancreatitis Qualifiers: Chronicity: acute Pancreatitis type: unspecified pancreatitis type Acute pancreatitis complication: unspecified Qualified Code(s): K85.90 - Acute pancreatitis without necrosis or infection, unspecified
--- NOTE | 2017-09-22 14:35 | NM ---
EXAM DATE: 09/22/2017 2:31 PM EDT AGE/SEX: 62 years / Female INDICATIONS: Abdominal pain. CLINICAL DATA: This is the patient's initial encounter. Patient reports that signs and symptoms have been present for 1 day and indicates a pain score of 6/10. MEDICAL/SURGICAL HISTORY: Pancreatitis. section. Tubal ligation. COMPARISON: No prior exams available for comparison. DOSE: 4.2 mCi Tc-99m mebrofenin i.v. TECHNIQUE: Following the intravenous administration of radiotracer, dynamic sequential images were pe rformed with continuous acquisition. Time-activity curves were generated. FINDINGS: Hepatic Kinetics: There is prompt uptake of radiotracer in the liver. No focal defects are seen. T here is normal rate of washout from the hepatic parenchyma. Biliary Clearance: Activity is first seen in the extrahepatic biliary system at 10 minutes. There i s normal excretion into the small bowel. Gallbladder: Activity is seen in the gallbladder. Biliary-Enteric Reflux: None observed. CONCLUSION: 1. No gallbladder activity. Delayed imaging will be obtained. Electronically signed by: Sage Culver MD 09/22/2017 2:34 PM EDT
[2017-09-22 16:48] LABS: Alanine Aminotransferase 812 U/L (10-53); Albumin 3.6 g/dL (3.4-5.0); Alkaline Phosphatase 154 U/L (45-117); Anion Gap 9 meq/L (5-15); Aspartate Aminotransferase 444 U/L (15-37); Blood Urea Nitrogen 10 mg/dL (7-18); Calcium 8.5 mg/dL (8.5-10.1); Carbon Dioxide 24.9 meq/L (21.0-32.0); Chloride 109 meq/L (98-107); Glomerular Filtration Rate 80 mL/min (>89); Glucose,Random 86 mg/dL (74-106); Lipase 2076 U/L (73-393); Potassium 4.1 meq/L (3.5-5.1); Sodium 143 meq/L (136-145); Total Protein 6.4 g/dL (6.4-8.2)
[2017-09-22] MEDS: Morphine Inj 4 MG/ML Vial IV.PUSH PRN (21:08)
[2017-09-22] MEDS: Pantoprazole Inj 40 MG Vial IV.PUSH SCH (21:28)
[2017-09-23] MEDS: KCL 20 mEq/NACL 0.45% Inj 1,000 ML IV.CONT SCH ×2 (05:33→18:04)
[2017-09-23 08:32] LABS: Baso % (Auto) 0.4 % (0.0-2.0); Eos % (Auto) 0.9 % (0.0-4.0); Hematocrit 38.5 % (35.0-46.0); Hemoglobin 13.2 gm/dL (11.6-15.3); Lymph # (Auto) 0.8 th/mm3 (1.0-4.8); Mean Corpuscular HGB Conc 34.3 % (32.0-36.0); Mean Corpuscular Hemoglobin 30.6 pg (27.0-34.0); Mean Corpuscular Volume 89.3 fL (80.0-100.0); Mean Platelet Volume 7.2 fL (7.0-11.0); Mono # (Auto) 0.2 th/mm3 (0.0-0.9); Mono % (Auto) 6.2 % (0.0-8.0); Neut # (Auto) 2.8 th/mm3 (1.8-7.7); Neut % (Auto) 72.5 % (16.0-70.0); Platelet Count 87 th/mm3 (150-450); Red Blood Count 4.31 mil/mm3 (4.00-5.30); Red Cell Distribution Width 14.1 % (11.6-17.2); White Blood Count 3.8 th/mm3 (4.0-11.0)
[2017-09-23 09:04] LABS: Albumin 3.4 g/dL (3.4-5.0); Anion Gap 11 meq/L (5-15); Aspartate Aminotransferase 192 U/L (15-37); Blood Urea Nitrogen 12 mg/dL (7-18); Calcium 8.8 mg/dL (8.5-10.1); Carbon Dioxide 21.9 meq/L (21.0-32.0); Chloride 109 meq/L (98-107); Glomerular Filtration Rate 83 mL/min (>89); Glucose,Random 89 mg/dL (74-106); Lipase 352 U/L (73-393); Sodium 142 meq/L (136-145)
[2017-09-23 09:09] LABS: Alanine Aminotransferase 550 U/L (10-53); Alkaline Phosphatase 131 U/L (45-117); Total Protein 6.2 g/dL (6.4-8.2)
[2017-09-23] MEDS: Sertraline 100 MG Tablet PO SCH (09:58)
[2017-09-23 10:39] LABS: Platelet Morphology Normal (Normal)
--- NOTE | 2017-09-23 12:08 | P.PNIM ---
Subjective Interval history: Follow up: acute pancreatitis and abd pain Patient reports not feeling well today, having diarrhea and generalized abd pain diarrhea every 30 mins to 1 hour liquid brown to grren in color no blood or black color Physical Exam Vital signs: Vital Signs 09/22/17 14:53 09/22/17 20:00 09/22/17 21:00 Temperature 98.5 F 97.8 F Pulse Rate 72 64 Respiratory Rate 14 18 14 Blood Pressure 113/61 122/64 Pulse Oximetry 94 L 95 09/23/17 00:31 09/23/17 04:00 09/23/17 08:00 Temperature 98.5 F 99 F 98.7 F Pulse Rate 70 72 69 Respiratory Rate 18 18 12 Blood Pressure 118/53 L 118/56 L 115/58 L Pulse Oximetry 96 96 94 L Intake & Output 09/22/17 09/23/17 09/23/17 18:59 06:59 18:59 Intake Total 1000 / 1000 Balance 1000 / 1000 Weight 84.8 kg Intake: IV 1000 / 1000 Potassium Chlor 20 mEq/NACL 0. 1000 / 1000 45% Inj 1,000 ML @ 84 mls/hr IV .CONT .[id number] [facility] Rx#:[id number] Oral 0 / 0 Other: # Voids 1 2 Date of Last Bowel Movement 09/21/17 Narrative: GENERAL: This is a well-nourished, well-developed patient, in no apparent distress. CARDIOVASCULAR: Regular rate and rhythm RESPIRATORY: Clear to auscultation. Breath sounds equal bilaterally. GASTROINTESTINAL: Abdomen soft, generalized tenderness with palpation, nondistended. Normal active bowel sounds MUSCULOSKELETAL: Extremities without clubbing, cyanosis, or edema. NEURO: Alert & Oriented x4 to person, place, time, situation. Moves all ext x4 Results - Labs CBC & Chem 7: 09/23/17 06:35 09/23/17 06:35 Laboratory Results - last 24 hr 09/22/17 09/22/17 09/23/17 15:15 15:15 06:35 WBC 3.8 L RBC 4.31 Hgb 13.2 Hct 38.5 MCV 89.3 MCH 30.6 MCHC 34.3 RDW 14.1 Plt Count 87 L MPV 7.2 Prelim Diff (Auto) Slide review pending Neut % (Auto) 72.5 H Lymph % (Auto) 20.0 [place] % (Auto) 6.2 Eos % (Auto) 0.9 Baso % (Auto) 0.4 Neut # (Auto) 2.8 Lymph # (Auto) 0.8 L [place] # (Auto) 0.2 Eos # (Auto) 0.0 Baso # (Auto) 0.0 WBC Differential . Diff Scan Auto diff confirmed Differential Comment . Platelet Estimate Low L Platelet Morphology Normal Sodium 143 Potassium 4.1 Chloride 109 H Carbon Dioxide 24.9 Anion Gap 9 BUN 10 Creatinine 0.73 Estimated GFR 80 L Random Glucose 86 Calcium 8.5 Total Bilirubin 1.0 AST 444 H ALT 812 H Alkaline Phosphatase 154 H Total Protein 6.4 Albumin 3.6 Lipase 2224 H 2076 H 09/23/17 06:35 WBC RBC Hgb Hct MCV MCH MCHC RDW Plt Count MPV Prelim Diff (Auto) Neut % (Auto) Lymph % (Auto) [place] % (Auto) Eos % (Auto) Baso % (Auto) Neut # (Auto) Lymph # (Auto) [place] # (Auto) Eos # (Auto) Baso # (Auto) WBC Differential Diff Scan Differential Comment Platelet Estimate Platelet Morphology Sodium 142 Potassium 4.0 Chloride 109 H Carbon Dioxide 21.9 Anion Gap 11 BUN 12 Creatinine 0.71 Estimated GFR 83 L Random Glucose 89 Calcium 8.8 Total Bilirubin 0.8 AST 192 H ALT 550 H Alkaline Phosphatase 131 H Total Protein 6.2 L Albumin 3.4 Lipase 352 - Imaging Impressions Hepatobiliary Scan Nuclear Medicine 09/22/17 12:19 CONCLUSION: 1. No gallbladder activity. Delayed imaging will be obtained. Assessment and Plan - Assessment (1) Abdominal pain Code(s): R10.9 - Unspecified abdominal pain Status: Acute Plan: Abdominal pain Pancreatitis Patient presents emergency department after having an episode of severe abdominal pain with dry heaves. Patient has been having intermittent abdominal pain for the past 7 months which is been worse over the past 3-4 months. Patient has a paraesophageal hernia has been followed by Dr. Adhikari and was instructed to stay on a liquid diet April 07 but this morning had an organic bagel. -Abdomen/Pelvis CT 09/21/17 11:19 reviewed and reveals: 1. Diffuse intrahepatic and extrahepatic ductal dilatation extending centrally to the level of the ampulla. Etiology is unclear. Consider MRCP examination for further evaluation as clinically indicated. 2. Splenomegaly. 3. Large hiatal hernia containing large portion of the stomach. 4. Normal appendix. -Outpatient MRCP 07/02/2017 hepatomegaly, enlarged portal vein concerning for portal hypertension, paraesophageal hernia. -Barium swallow 07/27/17 reveals large esophageal hiatal hernia encompassing two thirds of the stomach since significant GERD -CT of the abdomen and aorta 09/11/17 hepatomegaly, large hiatal hernia. Negative CTA of the abdominal aorta -on admission Total bilirubin 0.9, AST 140, ALT 80, alkaline phosphatase 109 lipase 822 -(09/22/17) Total bilirubin 1.0, AST 444, ALT 812, alkaline phosphatase 154 lipase 2075 -(09/23/17) Total bilirubin 0.8, AST 192, ALT 550, alkaline phosphatase 131 lipase 352 -liquid diet IV fluids for hydration Repeat MRCP 09/21/17 reveals: 1. Intrahepatic and extrahepatic biliary ductal dilatation without definite filling defect identified. ERCP may be helpful for further evaluation and possible treatment of this patient if clinically indicated. 2. Cholelithiasis. 3. Hepatosplenomegaly. 4. Large hiatal hernia. Consult GI, appreciate input Consult to general surgery Patient had [place] Hepatobiliary scan which did not show gallbladder after [address] Amaro discussed the case with Dr. Mcdaniels. Plan to discuss the case with Dr. Adhikari and Dr. Hernandez on Sunday (as patient was planning to have paraesophageal hernia repair as an outpatient) possible cholecystectomy with or without paraesophageal hernia repair. Diarrhea C diff stool studies requested increase IVF Anxiety Continue home medications (2) Pancreatitis Code(s): K85.90 - Acute pancreatitis without necrosis or infection, unspecified Status: Acute - Attending Attestation Patient examined. Assessment and plan formulated with Jaquelin Ponce PA-C. I agree with the above. Case d/w Dr. Mcdaniels (09/23) Possible cholecystectomy along with hiatal hernia repair. Surgical service to discuss options. (2) Pancreatitis Qualifiers: Chronicity: acute Pancreatitis type: unspecified pancreatitis type Acute pancreatitis complication: unspecified Qualified Code(s): K85.90 - Acute pancreatitis without necrosis or infection, unspecified
--- NOTE | 2017-09-23 14:52 | P.PNGI ---
Subjective Interval history: Feeling better , has diarrhea .No nausea, vomiting, pain improved .HIDA scan done -nonvisualization of GB, delayed study report pending -discussed with radiology -nonvisualization on delayed study .Discussed with - will review case with , may consider cholecystectomy with introp cholangiogram, plus minus hiatal hernia repair.ERCP to be scheduled pending surgery decision .due to large hiatal hernia , ERCP could be technically difficult, high risk of perforation.discussed with surgery, medicine and patent .May also consider PTC if necessary .EGD report reviewed-scope was advanced to second portion of duodenum Physical Exam Vital signs: Vital Signs 09/22/17 14:53 09/22/17 20:00 09/22/17 21:00 Temperature 98.5 F 97.8 F Pulse Rate 72 64 Respiratory Rate 14 18 14 Blood Pressure 113/61 122/64 Pulse Oximetry 94 L 95 09/23/17 00:31 09/23/17 04:00 09/23/17 08:00 Temperature 98.5 F 99 F 98.7 F Pulse Rate 70 72 69 Respiratory Rate 18 18 12 Blood Pressure 118/53 L 118/56 L 115/58 L Pulse Oximetry 96 96 94 L 09/23/17 12:00 Temperature 98.4 F Pulse Rate 67 Respiratory Rate 14 Blood Pressure 125/58 L Pulse Oximetry 96 Intake & Output 09/22/17 09/23/17 09/23/17 18:59 06:59 18:59 Intake Total 1000 / 1000 Balance 1000 / 1000 Weight 84.8 kg Intake: IV 1000 / 1000 Potassium Chlor 20 mEq/NACL 0. 1000 / 1000 45% Inj 1,000 ML @ 84 mls/hr IV .CONT .[id number] [facility] Rx#:[id number] Oral 0 / 0 Other: # Voids 1 2 Date of Last Bowel Movement 09/21/17 - Constitutional no acute distress - Routine HEENT Exam Head: Present: normocephalic Eye: Present: PERRL ENT: Present: mucous membranes moist - Routine Cardiovascular Exam Present: S1, S2 - Routine Neurological Exam Present: alert, oriented X3 - Routine Psychiatric Exam Present: normal affect Results - Labs CBC & Chem 7: 09/23/17 06:35 09/23/17 06:35 Laboratory Results - last 24 hr 09/22/17 09/22/17 09/23/17 15:15 15:15 06:35 WBC 3.8 L RBC 4.31 Hgb 13.2 Hct 38.5 MCV 89.3 MCH 30.6 MCHC 34.3 RDW 14.1 Plt Count 87 L MPV 7.2 Prelim Diff (Auto) Slide review pending Neut % (Auto) 72.5 H Lymph % (Auto) 20.0 [place] % (Auto) 6.2 Eos % (Auto) 0.9 Baso % (Auto) 0.4 Neut # (Auto) 2.8 Lymph # (Auto) 0.8 L [place] # (Auto) 0.2 Eos # (Auto) 0.0 Baso # (Auto) 0.0 WBC Differential . Diff Scan Auto diff confirmed Differential Comment . Platelet Estimate Low L Platelet Morphology Normal Sodium 143 Potassium 4.1 Chloride 109 H Carbon Dioxide 24.9 Anion Gap 9 BUN 10 Creatinine 0.73 Estimated GFR 80 L Random Glucose 86 Calcium 8.5 Total Bilirubin 1.0 AST 444 H ALT 812 H Alkaline Phosphatase 154 H Total Protein 6.4 Albumin 3.6 Lipase 2224 H 2076 H 09/23/17 06:35 WBC RBC Hgb Hct MCV MCH MCHC RDW Plt Count MPV Prelim Diff (Auto) Neut % (Auto) Lymph % (Auto) [place] % (Auto) Eos % (Auto) Baso % (Auto) Neut # (Auto) Lymph # (Auto) [place] # (Auto) Eos # (Auto) Baso # (Auto) WBC Differential Diff Scan Differential Comment Platelet Estimate Platelet Morphology Sodium 142 Potassium 4.0 Chloride 109 H Carbon Dioxide 21.9 Anion Gap 11 BUN 12 Creatinine 0.71 Estimated GFR 83 L Random Glucose 89 Calcium 8.8 Total Bilirubin 0.8 AST 192 H ALT 550 H Alkaline Phosphatase 131 H Total Protein 6.2 L Albumin 3.4 Lipase 352 - Imaging Impressions Hepatobiliary Scan Nuclear Medicine 09/22/17 12:19 CONCLUSION: 1. No gallbladder activity. Delayed imaging will be obtained. Assessment and Plan (1) Pancreatitis Status: Acute Code(s): K85.90 - Acute pancreatitis without necrosis or infection, unspecified (2) Choledocholithiasis Status: Acute Code(s): K80.50 - Calculus of bile duct without cholangitis or cholecystitis without obstruction (3) Abdominal pain Status: Acute Code(s): R10.9 - Unspecified abdominal pain (4) Hiatal hernia Status: Acute Code(s): K44.9 - Diaphragmatic hernia without obstruction or gangrene (5) Elevated LFTs Status: Acute Code(s): R94.5 - Abnormal results of liver function studies (6) Diarrhea Status: Acute Code(s): R19.7 - Diarrhea, unspecified - Attending Attestation Biliary pancreatitis -clinically improving Acute cholecystitis Elevated LFTS, dilated biliary tree, pancreatitis -improving-possible passed gallstone Large hiatal hernia Thrombocytopenia , splenomegaly-as per patient chronic , had work-up in the past -we will send additional w-up for underlying liver disease Diarrhea -acute -we will send additional w-up Abdominal pain secondary biliary pancreatitis -improved Recommendations full liquid diet stool c diff await surgery input to decide about [place] for ERCP before surgery vs cholecystectomy with IntraDop cholangiogram , plus minus hiatal hernia repair at tthe tome of cholecystectomy liver w-up will be ordered (1) Pancreatitis Qualifiers: Chronicity: acute Pancreatitis type: unspecified pancreatitis type Acute pancreatitis complication: unspecified Qualified Code(s): K85.90 - Acute pancreatitis without necrosis or infection, unspecified
[2017-09-23] MEDS: Venlafaxine XR 37.5 MG Capsule PO SCH (15:18)
[2017-09-23] MEDS: Pantoprazole Inj 40 MG Vial IV.PUSH SCH (18:04)
[2017-09-23 19:59] LABS: Iron 59 mcg/dL (50-170)
[2017-09-23 20:02] LABS: Ferritin 139 ng/mL (8-252)
[2017-09-23 22:19] LABS: Hepatitits B Surface Antigen Nonreactive (Nonreactive)
[2017-09-23] MEDS ORDERED: Metoprolol Tartrate 25 MG Tablet PO SCH (23:30)
[2017-09-23] MEDS ORDERED: Chlorhexidine Gluconate 2% 1 Pack (2 Cloths) TOPICAL SCH (23:30)
[2017-09-23] MEDS ORDERED: Sodium Chlor 0.9% Inj 500 ML IV.SIG SCH (23:45)
[2017-09-23 23:46] LABS: Hepatitis A IgM Antibody Nonreactive (Nonreactive)
[2017-09-24] MEDS: Venlafaxine XR 37.5 MG Capsule PO SCH (08:30)
[2017-09-24 08:33] LABS: Baso % (Auto) 0.4 % (0.0-2.0); Hematocrit 41.1 % (35.0-46.0); Hemoglobin 14.3 gm/dL (11.6-15.3); Lymph # (Auto) 0.7 th/mm3 (1.0-4.8); Lymph % (Auto) 21.5 % (9.0-44.0); Mean Corpuscular HGB Conc 34.7 % (32.0-36.0); Mean Corpuscular Volume 89.1 fL (80.0-100.0); Mono # (Auto) 0.2 th/mm3 (0.0-0.9); Mono % (Auto) 7.8 % (0.0-8.0); Neut # (Auto) 2.1 th/mm3 (1.8-7.7); Neut % (Auto) 69.3 % (16.0-70.0); Platelet Count 88 th/mm3 (150-450); Red Blood Count 4.61 mil/mm3 (4.00-5.30); Red Cell Distribution Width 13.7 % (11.6-17.2); White Blood Count 3.1 th/mm3 (4.0-11.0)
[2017-09-24] MEDS: Sertraline 100 MG Tablet PO SCH (08:33)
[2017-09-24 09:05] LABS: Alanine Aminotransferase 372 U/L (10-53); Albumin 3.4 g/dL (3.4-5.0); Anion Gap 10 meq/L (5-15); Aspartate Aminotransferase 63 U/L (15-37); Blood Urea Nitrogen 9 mg/dL (7-18); Calcium 9.2 mg/dL (8.5-10.1); Chloride 107 meq/L (98-107); Glomerular Filtration Rate 74 mL/min (>89); Glucose,Random 97 mg/dL (74-106); Potassium 4.3 meq/L (3.5-5.1); Sodium 141 meq/L (136-145)
[2017-09-24 09:08] LABS: Alkaline Phosphatase 117 U/L (45-117); Total Protein 6.7 g/dL (6.4-8.2)
[2017-09-24 09:45] LABS: Platelet Morphology Normal (Normal)
--- NOTE | 2017-09-24 10:10 | P.PNGI ---
Subjective Interval history: Pt resting in bed. Planned for cholecystectomy with intraop cholangiogram today and hernia repair. States feeling much better, not much abdominal pain. Denies nausea, vomiting. <Rossana Ortiz - Last Filed: 09/24/17 10:04> Physical Exam Vital signs: Vital Signs 09/23/17 12:00 09/23/17 16:00 09/24/17 00:00 Temperature 98.4 F 98.6 F 98.4 F Pulse Rate 67 66 66 Respiratory Rate 14 14 18 Blood Pressure 125/58 L 117/64 110/61 Pulse Oximetry 96 97 96 09/24/17 04:00 09/24/17 08:00 Temperature 97.6 F 97.7 F Pulse Rate 69 70 Respiratory Rate 18 20 Blood Pressure 121/73 109/56 L Pulse Oximetry 96 96 Intake & Output 09/23/17 09/24/17 09/24/17 18:59 06:59 18:59 Intake Total 600 / 600 Output Total 200 / 200 Balance -200 / -200 600 / 600 Weight 84.7 kg Intake: IV 300 / 300 Potassium Chlor 20 mEq/NACL 0. 300 / 300 45% Inj 1,000 ML @ 84 mls/hr IV .CONT .[id number] [facility] Rx#:[id number] Oral 300 / 300 Output: Urine 200 / 200 Other: # Voids 5 Date of Last Bowel Movement 09/24/17 # Bowel Movements 5 1 - Constitutional no acute distress - Routine HEENT Exam Head: Present: normocephalic, atraumatic - Routine Respiratory Exam Absent: accessory muscle use, decreased breath sounds - Routine Cardiovascular Exam Present: RRR - Routine Abdominal Exam Present: soft, normoactive bowel sounds - Routine Skin Exam Present: dry, warm <Rossana Ortiz - Last Filed: 09/24/17 10:04> Vital signs: Vital Signs 09/24/17 00:00 09/24/17 04:00 09/24/17 08:00 Temperature 98.4 F 97.6 F 97.7 F Pulse Rate 66 69 70 Respiratory Rate 18 18 20 Blood Pressure 110/61 121/73 109/56 L Pulse Oximetry 96 96 96 09/24/17 11:43 09/24/17 17:08 Temperature 97.7 F 97.9 F Pulse Rate 74 72 Respiratory Rate 20 20 Blood Pressure 142/67 H 123/57 L Pulse Oximetry 98 96 Intake & Output 09/24/17 09/24/17 09/25/17 06:59 18:59 06:59 Intake Total 600 / 600 0 / 0 Balance 600 / 600 0 / 0 Weight 84.7 kg Intake: IV 300 / 300 Potassium Chlor 20 mEq/NACL 0. 300 / 300 45% Inj 1,000 ML @ 84 mls/hr IV .CONT .[id number] [facility] Rx#:[id number] Oral 300 / 300 0 / 0 Other: # Voids 5 Date of Last Bowel Movement 09/24/17 09/23/17 # Bowel Movements 1 <Calista Foley A - Last Filed: 09/24/17 19:11> Results - Labs CBC & Chem 7: 09/24/17 06:45 09/24/17 06:45 Laboratory Results - last 24 hr 09/23/17 09/23/17 09/23/17 06:35 06:35 20:19 WBC RBC Hgb Hct MCV MCH MCHC RDW Plt Count MPV Prelim Diff (Auto) Neut % (Auto) Lymph % (Auto) [place] % (Auto) Eos % (Auto) Baso % (Auto) Neut # (Auto) Lymph # (Auto) [place] # (Auto) Eos # (Auto) Baso # (Auto) WBC Differential . Diff Scan Auto diff confirmed Differential Comment Platelet Estimate Low L Platelet Morphology Normal Sodium Potassium Chloride Carbon Dioxide Anion Gap BUN Creatinine Estimated GFR Random Glucose Calcium Iron 59 Ferritin 139 Total Bilirubin AST ALT Alkaline Phosphatase Total Protein Albumin Hepatitis A IgM Ab Nonreactive Hep Bs Antigen Nonreactive Hep B Core IgM Ab Nonreactive Hep C IgG Ab Nonreactive 09/24/17 09/24/17 06:45 06:45 WBC 3.1 L RBC 4.61 Hgb 14.3 Hct 41.1 MCV 89.1 MCH 31.0 MCHC 34.7 RDW 13.7 Plt Count 88 L MPV 7.0 Prelim Diff (Auto) Slide review pending Neut % (Auto) 69.3 Lymph % (Auto) 21.5 [place] % (Auto) 7.8 Eos % (Auto) 1.0 Baso % (Auto) 0.4 Neut # (Auto) 2.1 Lymph # (Auto) 0.7 L [place] # (Auto) 0.2 Eos # (Auto) 0.0 Baso # (Auto) 0.0 WBC Differential . Diff Scan Auto diff confirmed Differential Comment . Platelet Estimate Low L Platelet Morphology Normal Sodium 141 Potassium 4.3 Chloride 107 Carbon Dioxide 24.0 Anion Gap 10 BUN 9 Creatinine 0.78 Estimated GFR 74 L Random Glucose 97 Calcium 9.2 Iron Ferritin Total Bilirubin 0.8 AST 63 H ALT 372 H Alkaline Phosphatase 117 Total Protein 6.7 Albumin 3.4 Hepatitis A IgM Ab Hep Bs Antigen Hep B Core IgM Ab Hep C IgG Ab - Imaging Impressions Hepatobiliary Scan Nuclear Medicine 09/22/17 12:19 CONCLUSION: 1. No gallbladder activity. Delayed imaging will be obtained. <Rossana Ortiz - Last Filed: 09/24/17 10:04> - Labs CBC & Chem 7: 09/24/17 06:45 09/24/17 06:45 Laboratory Results - last 24 hr 09/23/17 09/23/17 09/24/17 06:35 20:19 06:45 WBC RBC Hgb Hct MCV MCH MCHC RDW Plt Count MPV Prelim Diff (Auto) Neut % (Auto) Lymph % (Auto) [place] % (Auto) Eos % (Auto) Baso % (Auto) Neut # (Auto) Lymph # (Auto) [place] # (Auto) Eos # (Auto) Baso # (Auto) WBC Differential Diff Scan Differential Comment Platelet Estimate Platelet Morphology Sodium Potassium Chloride Carbon Dioxide Anion Gap BUN Creatinine Estimated GFR Random Glucose Calcium Iron 59 Ferritin 139 Total Bilirubin AST ALT Alkaline Phosphatase Total Protein Albumin FREDERIC Screen Pos H Hepatitis A IgM Ab Nonreactive Hep Bs Antigen Nonreactive Hep B Core IgM Ab Nonreactive Hep C IgG Ab Nonreactive 09/24/17 09/24/17 06:45 06:45 WBC 3.1 L RBC 4.61 Hgb 14.3 Hct 41.1 MCV 89.1 MCH 31.0 MCHC 34.7 RDW 13.7 Plt Count 88 L MPV 7.0 Prelim Diff (Auto) Slide review pending Neut % (Auto) 69.3 Lymph % (Auto) 21.5 [place] % (Auto) 7.8 Eos % (Auto) 1.0 Baso % (Auto) 0.4 Neut # (Auto) 2.1 Lymph # (Auto) 0.7 L [place] # (Auto) 0.2 Eos # (Auto) 0.0 Baso # (Auto) 0.0 WBC Differential . Diff Scan Auto diff confirmed Differential Comment . Platelet Estimate Low L Platelet Morphology Normal Sodium 141 Potassium 4.3 Chloride 107 Carbon Dioxide 24.0 Anion Gap 10 BUN 9 Creatinine 0.78 Estimated GFR 74 L Random Glucose 97 Calcium 9.2 Iron Ferritin Total Bilirubin 0.8 AST 63 H ALT 372 H Alkaline Phosphatase 117 Total Protein 6.7 Albumin 3.4 FREDERIC Screen Hepatitis A IgM Ab Hep Bs Antigen Hep B Core IgM Ab Hep C IgG Ab <Calista Foley - Last Filed: 09/24/17 19:11> Assessment and Plan (1) Pancreatitis Status: Acute Code(s): K85.90 - Acute pancreatitis without necrosis or infection, unspecified (2) Choledocholithiasis Status: Acute Code(s): K80.50 - Calculus of bile duct without cholangitis or cholecystitis without obstruction (3) Abdominal pain Status: Acute Code(s): R10.9 - Unspecified abdominal pain (4) Hiatal hernia Status: Acute Code(s): K44.9 - Diaphragmatic hernia without obstruction or gangrene (5) Elevated LFTs Status: Acute Code(s): R94.5 - Abnormal results of liver function studies (6) Diarrhea Status: Acute Code(s): R19.7 - Diarrhea, unspecified - Plan Assessment: - Biliary pancreatitis- Lipase 2224 on 09/22 MRCP (09/21) Intrahepatic and extrahepatic biliary ductal dilatation without definite filling defect identified. ERCP may be helpful for further evaluation and possible treatment of this patient if clinically indicated. Cholelithiasis. Hepatosplenomegaly. Large hiatal hernia. HIDA (09/22) No gallbladder activity. Delayed imaging will be obtained. - Elevated LFTs AST-192 ALT-550 T bili-0.8 alk phos-131 (09/24) Pt planned for cholecystectomy today with intraop cholangiogram and hernia repair. Will await surgery recommendations regarding need for ERCP Plan Surgery- cholecystectomy with intraop cholangiogram Possible ERCP depending on surgery findings Monitor LFTs Further recommendations based on surgery findings Patient has been seen and examined by myself and Dr. Foley and this note is written on his behalf <Rossana Ortiz - Last Filed: 09/24/17 10:04> (1) Pancreatitis Status: Acute Code(s): K85.90 - Acute pancreatitis without necrosis or infection, unspecified (2) Choledocholithiasis Status: Acute Code(s): K80.50 - Calculus of bile duct without cholangitis or cholecystitis without obstruction (3) Abdominal pain Status: Acute Code(s): R10.9 - Unspecified abdominal pain (4) Hiatal hernia Status: Acute Code(s): K44.9 - Diaphragmatic hernia without obstruction or gangrene (5) Elevated LFTs Status: Acute Code(s): R94.5 - Abnormal results of liver function studies (6) Diarrhea Status: Acute Code(s): R19.7 - Diarrhea, unspecified - Attending Attestation Seen with Rossana, discussed with patient, will stand by for possible ERCP. Further recommendations to follow. <Calista Foley - Last Filed: 09/24/17 19:11> <Rossana Ortiz - Last Filed: 09/24/17 10:04> (1) Pancreatitis Qualifiers: Chronicity: acute Pancreatitis type: unspecified pancreatitis type Acute pancreatitis complication: unspecified Qualified Code(s): K85.90 - Acute pancreatitis without necrosis or infection, unspecified <Calista Foley - Last Filed: 09/24/17 19:11> (1) Pancreatitis Qualifiers: Chronicity: acute Pancreatitis type: unspecified pancreatitis type Acute pancreatitis complication: unspecified Qualified Code(s): K85.90 - Acute pancreatitis without necrosis or infection, unspecified
--- NOTE | 2017-09-24 11:47 | P.PNIM ---
Subjective Interval history: less abdomen pain. Physical Exam Vital signs: Vital Signs 09/23/17 12:00 09/23/17 16:00 09/24/17 00:00 Temperature 98.4 F 98.6 F 98.4 F Pulse Rate 67 66 66 Respiratory Rate 14 14 18 Blood Pressure 125/58 L 117/64 110/61 Pulse Oximetry 96 97 96 09/24/17 04:00 09/24/17 08:00 09/24/17 11:43 Temperature 97.6 F 97.7 F 97.7 F Pulse Rate 69 70 74 Respiratory Rate 18 20 20 Blood Pressure 121/73 109/56 L 142/67 H Pulse Oximetry 96 96 98 Intake & Output 09/23/17 09/24/17 09/24/17 18:59 06:59 18:59 Intake Total 600 / 600 0 / 0 Output Total 200 / 200 Balance -200 / -200 600 / 600 0 / 0 Weight 84.7 kg Intake: IV 300 / 300 Potassium Chlor 20 mEq/NACL 0. 300 / 300 45% Inj 1,000 ML @ 84 mls/hr IV .CONT .[id number] [facility] Rx#:[id number] Oral 300 / 300 0 / 0 Output: Urine 200 / 200 Other: # Voids 5 Date of Last Bowel Movement 09/24/17 09/23/17 # Bowel Movements 5 1 heart reg lung cta abd s/nt ext no edema Results - Labs CBC & Chem 7: 09/24/17 06:45 09/24/17 06:45 Laboratory Results - last 24 hr 09/23/17 09/23/17 09/24/17 06:35 20:19 06:45 WBC 3.1 L RBC 4.61 Hgb 14.3 Hct 41.1 MCV 89.1 MCH 31.0 MCHC 34.7 RDW 13.7 Plt Count 88 L MPV 7.0 Prelim Diff (Auto) Slide review pending Neut % (Auto) 69.3 Lymph % (Auto) 21.5 [place] % (Auto) 7.8 Eos % (Auto) 1.0 Baso % (Auto) 0.4 Neut # (Auto) 2.1 Lymph # (Auto) 0.7 L [place] # (Auto) 0.2 Eos # (Auto) 0.0 Baso # (Auto) 0.0 WBC Differential . Diff Scan Auto diff confirmed Differential Comment . Platelet Estimate Low L Platelet Morphology Normal Sodium Potassium Chloride Carbon Dioxide Anion Gap BUN Creatinine Estimated GFR Random Glucose Calcium Iron 59 Ferritin 139 Total Bilirubin AST ALT Alkaline Phosphatase Total Protein Albumin Hepatitis A IgM Ab Nonreactive Hep Bs Antigen Nonreactive Hep B Core IgM Ab Nonreactive Hep C IgG Ab Nonreactive 09/24/17 06:45 WBC RBC Hgb Hct MCV MCH MCHC RDW Plt Count MPV Prelim Diff (Auto) Neut % (Auto) Lymph % (Auto) [place] % (Auto) Eos % (Auto) Baso % (Auto) Neut # (Auto) Lymph # (Auto) [place] # (Auto) Eos # (Auto) Baso # (Auto) WBC Differential Diff Scan Differential Comment Platelet Estimate Platelet Morphology Sodium 141 Potassium 4.3 Chloride 107 Carbon Dioxide 24.0 Anion Gap 10 BUN 9 Creatinine 0.78 Estimated GFR 74 L Random Glucose 97 Calcium 9.2 Iron Ferritin Total Bilirubin 0.8 AST 63 H ALT 372 H Alkaline Phosphatase 117 Total Protein 6.7 Albumin 3.4 Hepatitis A IgM Ab Hep Bs Antigen Hep B Core IgM Ab Hep C IgG Ab - Imaging Impressions Hepatobiliary Scan Nuclear Medicine 09/22/17 12:19 CONCLUSION: 1. No gallbladder activity. Delayed imaging will be obtained. Assessment and Plan - Assessment (1) Abdominal pain Code(s): R10.9 - Unspecified abdominal pain Status: Acute Plan: Abdominal pain Gallstone Pancreatitis Patient presents emergency department after having an episode of severe abdominal pain with dry heaves. Patient has been having intermittent abdominal pain for the past 7 months which is been worse over the past 3-4 months. Patient has a paraesophageal hernia has been followed by Dr. Adhikari and was instructed to stay on a liquid diet April 07 but this morning had an organic bagel. -Abdomen/Pelvis CT 09/21/17 11:19 reviewed and reveals: 1. Diffuse intrahepatic and extrahepatic ductal dilatation extending centrally to the level of the ampulla. Etiology is unclear. Consider MRCP examination for further evaluation as clinically indicated. 2. Splenomegaly. 3. Large hiatal hernia containing large portion of the stomach. 4. Normal appendix. -Outpatient MRCP 07/02/2017 hepatomegaly, enlarged portal vein concerning for portal hypertension, paraesophageal hernia. -Barium swallow 07/27/17 reveals large esophageal hiatal hernia encompassing two thirds of the stomach since significant GERD -CT of the abdomen and aorta 09/11/17 hepatomegaly, large hiatal hernia. Negative CTA of the abdominal aorta -on admission Total bilirubin 0.9, AST 140, ALT 80, alkaline phosphatase 109 lipase 822 -(09/22/17) Total bilirubin 1.0, AST 444, ALT 812, alkaline phosphatase 154 lipase 2075 -(09/23/17) Total bilirubin 0.8, AST 192, ALT 550, alkaline phosphatase 131 lipase 352 -liquid diet IV fluids for hydration Repeat MRCP 09/21/17 reveals: 1. Intrahepatic and extrahepatic biliary ductal dilatation without definite filling defect identified. ERCP may be helpful for further evaluation and possible treatment of this patient if clinically indicated. 2. Cholelithiasis. 3. Hepatosplenomegaly. 4. Large hiatal hernia. Consult GI, appreciate input Consult to general surgery Patient had NM Hepatobiliary scan which did not show gallbladder after 24 hours Await gen surg decision for paraesophageal hernia repair plus/minus cholecystectomy) Diarrhea resolved. Anxiety Continue home medications (2) Pancreatitis Code(s): K85.90 - Acute pancreatitis without necrosis or infection, unspecified Status: Acute Plan: Abdominal pain Pancreatitis Patient presents emergency department after having an episode of severe abdominal pain with dry heaves. Patient has been having intermittent abdominal pain for the past 7 months which is been worse over the past 3-4 months. Patient has a paraesophageal hernia has been followed by Dr. Adhikari and was instructed to stay on a liquid diet April 07 but this morning had an organic bagel. -Abdomen/Pelvis CT 09/21/17 11:19 reviewed and reveals: 1. Diffuse intrahepatic and extrahepatic ductal dilatation extending centrally to the level of the ampulla. Etiology is unclear. Consider MRCP examination for further evaluation as clinically indicated. 2. Splenomegaly. 3. Large hiatal hernia containing large portion of the stomach. 4. Normal appendix. -Outpatient MRCP 07/02/2017 hepatomegaly, enlarged portal vein concerning for portal hypertension, paraesophageal hernia. -Barium swallow 07/27/17 reveals large esophageal hiatal hernia encompassing two thirds of the stomach since significant GERD -CT of the abdomen and aorta 09/11/17 hepatomegaly, large hiatal hernia. Negative CTA of the abdominal aorta -Total bilirubin 0.9, AST 140, ALT 80, alkaline phosphatase 109 lipase 822 -N.p.o. IV fluids for hydration Consult GI Repeat MRCP Anxiety Continue home medications (2) Pancreatitis Qualifiers: Chronicity: acute Pancreatitis type: unspecified pancreatitis type Acute pancreatitis complication: unspecified Qualified Code(s): K85.90 - Acute pancreatitis without necrosis or infection, unspecified
[2017-09-24 14:23] LABS: Anti-Nuclear Antibody Screen Pos (Neg)
--- NOTE | 2017-09-24 15:08 | ECG ---
Date Performed: 09/24/2017 Time Performed: 11:08:42 PTAGE: 62 years EKG: Sinus rhythm NORMAL ECG NO PREVIOUS TRACING DOCTOR: Sae Mcdonald Interpretating Date/Time 09/24/2017 15:06:41
--- NOTE | 2017-09-24 15:29 | P.CONGS ---
HPI Gen Surgery Consult Note Consult date: 09/24/17 Narrative: Mrs. Mcmahan is well known to me from outpatient due to large hiatal hernia currently undergoing workup. She presented to the hospital Sunday with severe acute onset epigastric abdominal pain and was noted to have gallstone pancreatitis. Transaminases and alk phos were elevated and are trending down, and lipase was elevated and has normalized. She underwent CT a/p showing biliary ductal dilatation and the large hiatal hernia, as well as hepatosplenomegaly. She recently underwent CTA of the abdomen to attempt to further characterize any varices in the left upper quadrant secondary to portal htn to plan for hiatal hernia repair. No large varices were seen. EGD in July showed medium hiatal hernia with seth's erosions. Barium swallow in July showed significant GE reflux, mild esophageal dysmotility, and 2/3 stomach intrathoracic. MRCP during hospitalization did not show any CBD filling defects. Currently the patient feels well and is not having abdominal pain. Of note, over the last few months she has had multiple symptoms such as an episode of severe vomiting in March, occasional dysphagia, intermittent heartburn sometimes keeping her up at night, shortness of breath, and malaise. Review of Systems All other systems reviewed negative except as stated in HPI Constitutional: Reports lack of energy Respiratory: Reports shortness of breath Gastrointestinal: Reports difficulty swallowing PMFSH - History History Provided By: Patient - Medical History Medical History: Medical History (Last Updated 09/21/17 @ 19:45 by Ambreen Salazar RN) Anxiety Arthritis Depression Diverticulosis Hernia Pancreatitis Spleen enlarged Tubal ligation status - Surgical History Surgical History: Surgical History (Last Updated 09/21/17 @ 19:45 by Ambreen Salazar RN) Hx of section - Tobacco History Second Hand Smoke Exposure: No Tobacco Use In Past 30 Days: No Smoking Status: Never smoker - Alcohol History How Often Do You Have a Drink Containing Alcohol: Never - Substance Use History Substance History: No History of Abuse - Travel History Recent Travel in the [place] Within the Last 8 Weeks: No Recent Travel Out of the Country Within the Last 8 Weeks: No - Immunization History Tetanus Immunization: Unsure Hx Influenza Vaccine This Season: No Medications and Allergies Active Medications: Active Medications Chlorhexidine Gluconate (Chlorhexidine 2% Cloth) 3 pack TOPICAL DRAWER IN PLAIN LOOM [place] Stop: 09/26/17 23:29 Potassium Chloride/Sodium Chloride (Potassium Chlor 20 Meq/Nacl 0.45% Inj) 1, 000 mls @ 84 mls/hr IV.CONT .[id number] [facility] Last Infusion: 09/24/17 06:00 Dose: 84 mls/hr Lactated Ringer's (Lr 1000 Ml Inj) 1,000 mls @ 30 mls/hr IV.SIG .Q24H [facility] Stop: 09/26/17 23:29 Sodium Chloride (Ns Inj) 500 mls @ 30 mls/hr IV.SIG .Q10H [facility] Stop: 09/26/17 23:29 Lorazepam (Ativan Inj) 1 mg IV.PUSH Q6H PRN PRN Reason: AGITATION Last Admin: 09/23/17 19:45 Dose: 1 mg Metoprolol Tartrate (Lopressor) 25 mg PO DRAWER IN PLAIN LOOM [facility] Stop: 09/26/17 23:29 Morphine Sulfate (Morphine Inj) 5 mg IV.PUSH Q3H PRN PRN Reason: PAIN 1-10 AND/OR FEVER >101F Last Admin: 09/22/17 21:08 Dose: 5 mg Ondansetron HCl (Zofran Inj) 4 mg IV.PUSH Q6H PRN PRN Reason: NAUSEA OR VOMITING Pantoprazole Sodium (Protonix Inj) 40 mg IV.PUSH Q24H [facility] Last Admin: 09/23/17 18:04 Dose: 40 mg Povidone Iodine (Betadine 5% Antisepsis Kit) 1 applicatio EACH NARE DRAWER IN PLAIN LOOM [facility] Stop: 09/26/17 23:29 Sertraline HCl (Zoloft) 200 mg PO DAILY [facility] Last Admin: 09/24/17 08:33 Dose: 200 mg Sodium Chloride (Ns Flush) 2 ml IV.FLUSH BID [facility] Last Admin: 09/24/17 12:48 Dose: 2 ml Sodium Chloride (Ns Flush) 2 ml IV.FLUSH PRN PRN PRN Reason: FLUSH AFTER USING IV ACCESS Venlafaxine HCl (Effexor Xr) 37.5 mg PO DAILY [facility] Last Admin: 09/24/17 08:30 Dose: 37.5 mg Allergies Allergy/AdvReac Type Severity Reaction Status Date / Time amoxicillin AdvReac Nausea/Vomi Verified 09/21/17 11:04 ting Home Medications Medication Instructions Recorded Confirmed Type ascorbic acid (vitamin C) [Vitamin 1,000 mg PO DAILY 09/21/17 09/23/17 History C] calcium carbonate [Calcium 500] 500 mg PO DAILY 09/21/17 09/23/17 History [id number]-vit K tab PO DAILY 09/21/17 History [Multi For Her] omeprazole 20 mg PO DAILY 09/21/17 09/23/17 History sertraline 200 mg PO DAILY 09/21/17 09/23/17 History venlafaxine 37.5 mg PO DAILY 09/21/17 09/23/17 History vitamin E 400 unit PO DAILY 09/21/17 09/23/17 History Exam Vital signs: Vital Signs 09/23/17 16:00 09/24/17 00:00 09/24/17 04:00 Temperature 98.6 F 98.4 F 97.6 F Pulse Rate 66 66 69 Respiratory Rate 14 18 18 Blood Pressure 117/64 110/61 121/73 Pulse Oximetry 97 96 96 09/24/17 08:00 09/24/17 11:43 Temperature 97.7 F 97.7 F Pulse Rate 70 74 Respiratory Rate 20 20 Blood Pressure 109/56 L 142/67 H Pulse Oximetry 96 98 Intake & Output 09/23/17 09/24/17 09/24/17 18:59 06:59 18:59 Intake Total 600 / 600 0 / 0 Output Total 200 / 200 Balance -200 / -200 600 / 600 0 / 0 Weight 84.7 kg Intake: IV 300 / 300 Potassium Chlor 20 mEq/NACL 0. 300 / 300 45% Inj 1,000 ML @ 84 mls/hr IV .CONT .[id number] [facility] Rx#:[id number] Oral 300 / 300 0 / 0 Output: Urine 200 / 200 Other: # Voids 5 Date of Last Bowel Movement 09/24/17 09/23/17 # Bowel Movements 5 1 - Constitutional no acute distress, average body habitus, cooperative - Routine HEENT Exam Head: Present: normocephalic, atraumatic Eye: Present: EOMI ENT: Present: mucous membranes moist - Routine Neck Exam Present: supple, full ROM - Routine Chest/Breast/Axilla Exam Chest wall: Absent: tenderness - Routine Respiratory Exam Present: CTA bilaterally. Absent: accessory muscle use - Routine Cardiovascular Exam Present: RRR - Routine Abdominal Exam Present: soft. Absent: tenderness, distended - Routine Extremities Exam Absent: cyanosis, edema - Routine Skin Exam Present: intact. Absent: cyanosis - Routine Neurological Exam Present: alert, oriented X3 Results - Labs 09/24/17 06:45 09/24/17 06:45 Abnormal lab results 09/24/17 09/24/17 09/24/17 Range/Units 06:45 06:45 06:45 WBC 3.1 L (4.0-11.0) th/mm3 Plt Count 88 L (150-450) th/mm3 Lymph # (Auto) 0.7 L (1.0-4.8) th/mm3 Platelet Estimate Low L (Normal) Estimated GFR 74 L (>89) mL/min AST 63 H (15-37) U/L ALT 372 H (10-53) U/L FREDERIC Screen Pos H (Neg) Diabetes panel 09/24/17 Range/Units 06:45 Sodium 141 (136-145) meq/L Potassium 4.3 (3.5-5.1) meq/L Chloride 107 (98-107) meq/L Carbon Dioxide 24.0 (21.0-32.0) meq/L BUN 9 (7-18) mg/dL Creatinine 0.78 (0.50-1.00) mg/dL Calcium 9.2 (8.5-10.1) mg/dL AST 63 H (15-37) U/L ALT 372 H (10-53) U/L Alkaline Phosphatase 117 (45-117) U/L Total Protein 6.7 (6.4-8.2) g/dL Albumin 3.4 (3.4-5.0) g/dL Calcium panel 09/24/17 Range/Units 06:45 Calcium 9.2 (8.5-10.1) mg/dL Albumin 3.4 (3.4-5.0) g/dL Pituitary panel 09/24/17 Range/Units 06:45 Sodium 141 (136-145) meq/L Potassium 4.3 (3.5-5.1) meq/L Chloride 107 (98-107) meq/L Carbon Dioxide 24.0 (21.0-32.0) meq/L BUN 9 (7-18) mg/dL Creatinine 0.78 (0.50-1.00) mg/dL Calcium 9.2 (8.5-10.1) mg/dL Adrenal panel 09/24/17 Range/Units 06:45 Sodium 141 (136-145) meq/L Potassium 4.3 (3.5-5.1) meq/L Chloride 107 (98-107) meq/L Carbon Dioxide 24.0 (21.0-32.0) meq/L BUN 9 (7-18) mg/dL Creatinine 0.78 (0.50-1.00) mg/dL Calcium 9.2 (8.5-10.1) mg/dL Total Bilirubin 0.8 (0.2-1.0) mg/dL AST 63 H (15-37) U/L ALT 372 H (10-53) U/L Alkaline Phosphatase 117 (45-117) U/L Total Protein 6.7 (6.4-8.2) g/dL Albumin 3.4 (3.4-5.0) g/dL All other labs normal. - Imaging CT scan - abdomen: report reviewed, image reviewed CT scan - pelvis: report reviewed, image reviewed Assessment and Plan - Assessment (1) Gallstones Code(s): K80.20 - Calculus of gallbladder without cholecystitis without obstruction Status: Acute (2) Choledocholithiasis Code(s): K80.50 - Calculus of bile duct without cholangitis or cholecystitis without obstruction Status: Acute (3) Hiatal hernia Code(s): K44.9 - Diaphragmatic hernia without obstruction or gangrene Status: Acute (4) Acute gallstone pancreatitis Code(s): K85.10 - Biliary acute pancreatitis without necrosis or infection Status: Acute - Plan Current hospitalization due to gallstone pancreatitis. She has likely passed the stone as symptoms and labs have improved. Recommend to proceed with lap kira, possible IOC, and liver biopsy due to her history of liver disease presumed SHAVER. In addition, she has undergone workup for large hiatal hernia and desires to proceed with repair. This is complicated by hepatosplenomegaly possible portal htn. Will proceed with repair at time of lap kira if appears safe, no large varices, etc. Will perform reduction and repair of hiatal hernia, possible fundoplication. I discussed the planned procedures and possibilities in detail with the patient and her . She understands that she may not improve from all her preop symptoms and also that there is elevated risk due to her splenomegaly and possible portal htn.
[2017-09-24] MEDS: Pantoprazole Inj 40 MG Vial IV.PUSH SCH (16:56)
[2017-09-25] MEDS: Sertraline 100 MG Tablet PO SCH (08:40)
[2017-09-25] MEDS: Venlafaxine XR 37.5 MG Capsule PO SCH (08:40)
[2017-09-25 09:56] LABS: Activated Partial Thrombo Time 24.7 sec (24.3-30.1); INR 1.1 Ratio
--- NOTE | 2017-09-25 09:58 | P.PNIM ---
Subjective Interval history: Follow up: gallstone pancreatitis and paraesophageal hernia Patient reports feeling fatigued as she did not sleep well in the hospital last night looking forward to surgery later today endorse anxiety related to upcoming surgery Physical Exam Vital signs: Vital Signs 09/24/17 11:43 09/24/17 17:08 09/24/17 20:00 Temperature 97.7 F 97.9 F 98.1 F Pulse Rate 74 72 62 Respiratory Rate 20 20 16 Blood Pressure 142/67 H 123/57 L 118/56 L Pulse Oximetry 98 96 97 09/25/17 00:00 09/25/17 04:00 09/25/17 08:00 Temperature 97.7 F 97.9 F 98.0 F Pulse Rate 63 64 66 Respiratory Rate 20 18 16 Blood Pressure 122/59 L 119/55 L 117/61 Pulse Oximetry 95 97 96 Intake & Output 09/24/17 09/25/17 09/25/17 18:59 06:59 18:59 Intake Total 0 / 0 Balance 0 / 0 Intake: Oral 0 / 0 Other: Date of Last Bowel Movement 09/23/17 09/24/17 Narrative: GENERAL: This is a well-nourished, well-developed patient, in no apparent distress. CARDIOVASCULAR: Regular rate and rhythm RESPIRATORY: Clear to auscultation. Breath sounds equal bilaterally. GASTROINTESTINAL: Abdomen soft, generalized tenderness with palpation, nondistended. Normal active bowel sounds MUSCULOSKELETAL: Extremities without clubbing, cyanosis, or edema. NEURO: Alert & Oriented x4 to person, place, time, situation. Moves all ext x4 Results - Labs CBC & Chem 7: 09/24/17 06:45 09/24/17 06:45 Laboratory Results - last 24 hr 09/24/17 06:45 FREDERIC Screen Pos H - Imaging ITS Impressions Chest X-Ray 09/21/17 00:00 CONCLUSION: 1. No acute cardiopulmonary disease. 2. Large hiatal hernia. Cholangiopancreatography MRI 09/21/17 00:00 CONCLUSION: 1. Intrahepatic and extrahepatic biliary ductal dilatation without definite filling defect identified. ERCP may be helpful for further evaluation and possible treatment of this patient if clinically indicated. 2. Cholelithiasis. 3. Hepatosplenomegaly. 4. Large hiatal hernia. Abdomen/Pelvis CT 09/21/17 11:19 CONCLUSION: 1. Diffuse intrahepatic and extrahepatic ductal dilatation extending centrally to the level of the ampulla. Etiology is unclear. Consider MRCP examination for further evaluation as clinically indicated. 2. Splenomegaly. 3. Large hiatal hernia containing large portion of the stomach. 4. Normal appendix. Hepatobiliary Scan Nuclear Medicine 09/22/17 12:19 CONCLUSION: 1. No gallbladder activity. Delayed imaging will be obtained. Assessment and Plan - Assessment (1) Abdominal pain Code(s): R10.9 - Unspecified abdominal pain Status: Acute Plan: Abdominal pain Gallstone Pancreatitis Patient presents emergency department after having an episode of severe abdominal pain with dry heaves. Patient has been having intermittent abdominal pain for the past 7 months which is been worse over the past 3-4 months. Patient has a paraesophageal hernia has been followed by Dr. Adhikari and was instructed to stay on a liquid diet April 07 but this morning had an organic bagel. -Abdomen/Pelvis CT 09/21/17 11:19 reviewed and reveals: 1. Diffuse intrahepatic and extrahepatic ductal dilatation extending centrally to the level of the ampulla. Etiology is unclear. Consider MRCP examination for further evaluation as clinically indicated. 2. Splenomegaly. 3. Large hiatal hernia containing large portion of the stomach. 4. Normal appendix. -Outpatient MRCP 07/02/2017 hepatomegaly, enlarged portal vein concerning for portal hypertension, paraesophageal hernia. -Barium swallow 07/27/17 reveals large esophageal hiatal hernia encompassing two thirds of the stomach since significant GERD -CT of the abdomen and aorta 09/11/17 hepatomegaly, large hiatal hernia. Negative CTA of the abdominal aorta -on admission Total bilirubin 0.9, AST 140, ALT 80, alkaline phosphatase 109 lipase 822 -(09/22/17) Total bilirubin 1.0, AST 444, ALT 812, alkaline phosphatase 154 lipase 2075 -(09/23/17) Total bilirubin 0.8, AST 192, ALT 550, alkaline phosphatase 131 lipase 352 -liquid diet IV fluids for hydration Repeat MRCP 09/21/17 reveals: 1. Intrahepatic and extrahepatic biliary ductal dilatation without definite filling defect identified. ERCP may be helpful for further evaluation and possible treatment of this patient if clinically indicated. 2. Cholelithiasis. 3. Hepatosplenomegaly. 4. Large hiatal hernia. Consult GI, appreciate input Consult to general surgery - patient known to Dr. Adhikari from outpatient Patient had NM Hepatobiliary scan which did not show gallbladder after 24 hours Plan for lap cholecystomy, possible IOC, and liver biopsy due to her history of liver disease presumed SHAVER as well as repair of paraesophageal hernia Diarrhea resolved. Anxiety Continue home medications The exam, history, and the medical decision-making described in the above note were completed with the assistance of the mid-level provider. I reviewed and agree with the findings presented. I attest that I had a [id number] encounter with the patient on the same day, and personally performed and documented my assessment and findings in the medical record. (2) Pancreatitis Code(s): K85.90 - Acute pancreatitis without necrosis or infection, unspecified Status: Acute (2) Pancreatitis Qualifiers: Chronicity: acute Pancreatitis type: unspecified pancreatitis type Acute pancreatitis complication: unspecified Qualified Code(s): K85.90 - Acute pancreatitis without necrosis or infection, unspecified
[2017-09-25 10:18] LABS: Albumin 3.8 g/dL (3.4-5.0); Anion Gap 9 meq/L (5-15); Aspartate Aminotransferase 29 U/L (15-37); Blood Urea Nitrogen 9 mg/dL (7-18); Calcium 8.7 mg/dL (8.5-10.1); Carbon Dioxide 23.7 meq/L (21.0-32.0); Chloride 109 meq/L (98-107); Glomerular Filtration Rate 86 mL/min (>89); Glucose,Random 77 mg/dL (74-106); Potassium 4.1 meq/L (3.5-5.1); Sodium 142 meq/L (136-145)
[2017-09-25 10:22] LABS: Alanine Aminotransferase 255 U/L (10-53); Alkaline Phosphatase 102 U/L (45-117); Total Protein 6.8 g/dL (6.4-8.2)
[2017-09-25] MEDS ORDERED: Glycopyrrolate Inj 1 MG/5 ML Syringe IV.PUSH ONE (11:23)
[2017-09-25] MEDS ORDERED: Lidocaine PF 1% Inj 5 ML Syringe INFILTRATN ONE (11:23)
[2017-09-25] MEDS ORDERED: Phenylephrine/NS 1000 MCG/10ML Syringe IV.PUSH ONE (11:23)
[2017-09-25] MEDS ORDERED: Neostigmine Inj 5 MG/5 ML Syringe IV.PUSH ONE (11:23)
[2017-09-25] MEDS ORDERED: Bupivacaine/Epinephrine Inj 0.25% 50 ML Vial ONE ×2 (14:34→14:39)
[2017-09-25] MEDS ORDERED: Sugammadex Inj 200 MG/2 ML Vial IV.PUSH ONE (18:27)
--- NOTE | 2017-09-25 18:28 | P.OP ---
Date of procedure: 10/02/17 Procedure: Laparoscopic cholecystectomy Liver biopsy x 2 Robot assisted paraesophageal hernia repair and gastropexy Anesthesia: PRAVEENA Surgeon: Daniel Adhikari MD Shaker Flatwork: Moises Shanks Estimated blood loss (mL): 30 Pathology: other (gallbladder and contents; core needle liver biopsy x 2) Operation and Findings: Complications: None apparent Operative findings: Gallbladder wall inflammation. Hepatomegaly. Moderate to large paraesophageal hernia. Some large vessels in LUQ including possible accessory left hepatic artery. Procedure in detail: The patient was taken to the operating room and placed in the supine position. General endotracheal anesthesia was induced. The abdomen was prepped and draped in usual sterile fashion and a surgical timeout was performed to verify correct patient procedure and site. Appropriate perioperative antibiotics were administered. Local anesthetic was injected in the skin and subcutaneous tissue 15 cm inferior to the xiphoid and a 5 mm incision performed. The abdomen was entered using the Optiview 5 mm trocar with direct laparoscopic visualization. The abdomen was then insufflated to 15 mmHg with CO2 gas which the patient tolerated well. Ports were placed in preparation for the paraesophageal hernia repair. A 5 mm port placed in the right upper lateral abdomen. An 8 mm port 10 cm to the right and superior to the initial port. Another 8 mm port in the left midclavicular line. A 5 mm port was placed in the left lateral abdomen as an assistant general manager port. Finally a 12 mm port was placed in the epigastrium near the xiphoid. The patient was placed in reverse Trendelenburg position and turned slightly to the left. Attention was turned to the right upper quadrant and the dome of the gallbladder was grasped and retracted cephalad. The infundibulum was retracted laterally to expose Calot's triangle. Blunt dissection and judicious use of electrocautery was used to expose the cystic duct and the cystic artery directly entering the gallbladder. Two clips were placed proximally on each of these structures and one distally and they were transected. The gallbladder was then removed from the liver bed using electrocautery. Hemostasis was achieved. The gallbladder was then removed from the abdomen using an Endo Catch bag. The clips were in place on the cystic duct and cystic artery stumps with no bleeding or bile leakage. Next, a small skin incision was made in the right upper abdomen and the OGPlanet-T gun was used to take to core needle liver biopsies. These were sent as permanent specimens as well as the gallbladder. At this point, the alfred flex liver retractor was placed through the right upper lateral port to retract the left lateral lobe of the liver and expose the esophageal hiatus. Laparoscopic instruments were removed and the da Estephanie robot was docked over the left shoulder and a 45 angle. Attention was now turned to the large paraesophageal hernia. There was a moderate sized diaphragmatic defect. The stomach was able to be brought into the abdomen the hernia sac grasped and retracted caudad. The hernia sac was circumferentially freed from surrounding tissue using a scalpel. The crura posteriorly were identified and a Seminole drain placed circumferentially around the fundus of the stomach to assist in retraction. Continued circumferential dissection was performed until the stomach sat easily in the abdomen with at least 3 cm of esophagus in the abdominal cavity. There there was some enlarged vessels in the left upper quadrant including a possible accessory left hepatic artery which would make fundoplication more difficult. At this point the diaphragmatic hiatus was closed with multiple [id number] 0 silk sutures. A gastropexy was performed after decreasing in intra-abdominal pressure to 8 mmHg. 0 Vicryl sutures used to secure the anterior wall of the stomach to the abdominal wall. There was good hemostasis throughout the operative sites. This point sutures and the Tien drain or removed. At this point, the abdomen was allowed to desufflate and trochars were removed. The fascia at the 12 mm port sites was closed with 0 Vicryl suture. Skin was closed with subcuticular 4-0 Monocryl as well as Dermabond. The patient tolerated the procedure well and was extubated and taken to PACU in stable condition. All sponge and instrument counts were correct.
[2017-09-25] MEDS ORDERED: fentaNYL Citrate Inj 100 MCG/2 ML Ampul ONE (19:13)
[2017-09-25] MEDS ORDERED: *morphine SULFATE 10 MG/ML PERIprocedure ONLY ONE ×2 (19:13→19:31)
--- NOTE | 2017-09-25 19:28 | XR ---
EXAM DATE: 09/25/2017 7:18 PM EDT AGE/SEX: 62 years / Female INDICATIONS: Rule out pneumothorax. Post lap cholecystectomy and liver biopsy. CLINICAL DATA: This is the patient's subsequent encounter. Patient reports that signs and symptoms h ave been present for 4 - 6 days and indicates a pain score of Nonresponsive. MEDICAL/SURGICAL HISTORY: None. . Tubal ligation. Inguinal hernia repair. COMPARISON: [facility] – [place], [place], CHEST 1V SINGLE AP, 09/21/2017. . FINDINGS: Patchy parenchymal consolidation and small pleural effusions seen of both bases. No pneumothorax. Heart size stable, upper limits of normal. CONCLUSION: No perceptible pneumothorax. Patchy consolidation and small pleural effusions at both lung bases. Electronically signed by: Harinder Contreras MD 09/25/2017 7:27 PM EDT
[2017-09-25] MEDS: KCL 20 mEq/NACL 0.45% Inj 1,000 ML IV.CONT SCH (19:30)
[2017-09-26] MEDS: Morphine Inj 4 MG/ML Vial IV.PUSH PRN ×3 (03:20→23:07)
--- NOTE | 2017-09-26 08:52 | P.PNGS ---
Subjective Interval history: Tolerating clears. Some post op pain. Coughing a bit. CXR last night showed some basilar effusions, congestion. Physical Exam Vital signs: Vital Signs 09/25/17 12:00 09/25/17 18:52 09/25/17 19:00 Temperature 97.9 F 98.0 F Pulse Rate 72 96 H 94 H Respiratory Rate 16 19 19 Blood Pressure 113/53 L 123/62 128/60 Pulse Oximetry 94 L 97 97 09/25/17 19:15 09/25/17 19:30 09/25/17 19:45 Temperature Pulse Rate 92 H 94 H 93 H Respiratory Rate 18 17 18 Blood Pressure 126/60 121/58 L 123/60 Pulse Oximetry 97 95 95 09/25/17 20:00 09/25/17 20:35 09/26/17 00:00 Temperature 98.2 F 98.2 F Pulse Rate 93 H 96 H 87 Respiratory Rate 18 17 16 Blood Pressure 124/61 127/62 107/59 L Pulse Oximetry 94 L 94 L 97 09/26/17 04:00 Temperature 98.1 F Pulse Rate 82 Respiratory Rate 16 Blood Pressure 120/66 Pulse Oximetry 98 Intake & Output 09/25/17 09/26/17 09/26/17 18:59 06:59 18:59 Intake Total 3100 / 3100 480 / 480 Output Total 170 / 170 1150 / 1150 Balance 2930 / 2930 -670 / -670 Intake: Oral 300 / 300 480 / 480 Anesthesia Amount 2800 / 2800 Output: Urine 750 / 750 Estimated Blood Loss 20 / 20 Urine Amount (Catheter) 150 / 150 400 / 400 Indwelling Urethral Catheter 150 / 150 400 / 400 Other: Date of Last Bowel Movement 09/24/17 09/24/17 # Bowel Movements 0 Narrative: nonlabored breathing Abd: soft, post op ttp, inc c/d/i - Urinary Catheter Management Indwelling Urethral Catheter Cath placed during this visit: no Reason for continuing: Hourly intake/output Assessment and Plan - Assessment (1) Gallstones Code(s): K80.20 - Calculus of gallbladder without cholecystitis without obstruction Status: Acute (2) Choledocholithiasis Code(s): K80.50 - Calculus of bile duct without cholangitis or cholecystitis without obstruction Status: Acute (3) Hiatal hernia Code(s): K44.9 - Diaphragmatic hernia without obstruction or gangrene Status: Acute (4) Acute gallstone pancreatitis Code(s): K85.10 - Biliary acute pancreatitis without necrosis or infection Status: Acute - Plan POD 1 s/p lap kira, liver biopsy, robot assisted paraesophageal hernia repair with gastropexy. Stable and doing well post op. Start fulls. D/c pinedo. Incentive spirometry. Possible dc home tomorrow if no issues prior.
[2017-09-26] MEDS: Venlafaxine XR 37.5 MG Capsule PO SCH (09:25)
[2017-09-26] MEDS: Sertraline 100 MG Tablet PO SCH (09:26)
--- NOTE | 2017-09-26 11:05 | P.PNIM ---
Subjective Interval history: Pt tolerating clear liquids and is planned for trial of full liquids today Some abdominal discomfort, +Flatus Pt reports some dry cough Physical Exam Vital signs: Vital Signs 09/25/17 12:00 09/25/17 18:52 09/25/17 19:00 Temperature 97.9 F 98.0 F Pulse Rate 72 96 H 94 H Respiratory Rate 16 19 19 Blood Pressure 113/53 L 123/62 128/60 Pulse Oximetry 94 L 97 97 09/25/17 19:15 09/25/17 19:30 09/25/17 19:45 Temperature Pulse Rate 92 H 94 H 93 H Respiratory Rate 18 17 18 Blood Pressure 126/60 121/58 L 123/60 Pulse Oximetry 97 95 95 09/25/17 20:00 09/25/17 20:35 09/26/17 00:00 Temperature 98.2 F 98.2 F Pulse Rate 93 H 96 H 87 Respiratory Rate 18 17 16 Blood Pressure 124/61 127/62 107/59 L Pulse Oximetry 94 L 94 L 97 09/26/17 04:00 09/26/17 08:00 Temperature 98.1 F 97.9 F Pulse Rate 82 79 Respiratory Rate 16 18 Blood Pressure 120/66 113/55 L Pulse Oximetry 98 Intake & Output 09/25/17 09/26/17 09/26/17 18:59 06:59 18:59 Intake Total 3100 / 3100 480 / 480 Output Total 170 / 170 1150 / 1150 Balance 2930 / 2930 -670 / -670 Intake: Oral 300 / 300 480 / 480 Anesthesia Amount 2800 / 2800 Output: Urine 750 / 750 Estimated Blood Loss 20 / 20 Urine Amount (Catheter) 150 / 150 400 / 400 Indwelling Urethral Catheter 150 / 150 400 / 400 Other: Date of Last Bowel Movement 09/24/17 09/24/17 # Bowel Movements 0 Narrative: General: NAD, AAOx3 Chest: CTA Cardiac: Regular Abd: soft, post op ttp, inc c/d/i Ext: No edema - Urinary Catheter Management Indwelling Urethral Catheter Cath placed during this visit: no Reason for continuing: Hourly intake/output Results - Labs CBC & Chem 7: 09/24/17 06:45 09/25/17 08:15 - Imaging Impressions ITS Impressions Chest X-Ray 09/21/17 00:00 CONCLUSION: 1. No acute cardiopulmonary disease. 2. Large hiatal hernia. Cholangiopancreatography MRI 09/21/17 00:00 CONCLUSION: 1. Intrahepatic and extrahepatic biliary ductal dilatation without definite filling defect identified. ERCP may be helpful for further evaluation and possible treatment of this patient if clinically indicated. 2. Cholelithiasis. 3. Hepatosplenomegaly. 4. Large hiatal hernia. Abdomen/Pelvis CT 09/21/17 11:19 CONCLUSION: 1. Diffuse intrahepatic and extrahepatic ductal dilatation extending centrally to the level of the ampulla. Etiology is unclear. Consider MRCP examination for further evaluation as clinically indicated. 2. Splenomegaly. 3. Large hiatal hernia containing large portion of the stomach. 4. Normal appendix. Hepatobiliary Scan Nuclear Medicine 09/22/17 12:19 CONCLUSION: 1. No gallbladder activity. Delayed imaging will be obtained. Chest X-Ray 09/25/17 00:00 CONCLUSION: No perceptible pneumothorax. Patchy consolidation and small pleural effusions at both lung bases. Assessment and Plan - Assessment (1) Abdominal pain Code(s): R10.9 - Unspecified abdominal pain Status: Acute Plan: Abdominal pain Gallstone Pancreatitis Patient presents emergency department after having an episode of severe abdominal pain with dry heaves. Patient has been having intermittent abdominal pain for the past 7 months which is been worse over the past 3-4 months. Patient has a paraesophageal hernia has been followed by Dr. Adhikari and was instructed to stay on a liquid diet April 07 but this morning had an organic bagel. -Abdomen/Pelvis CT (09/21/17): 1. Diffuse intrahepatic and extrahepatic ductal dilatation extending centrally to the level of the ampulla. Etiology is unclear. 2. Splenomegaly. 3. Large hiatal hernia containing large portion of the stomach. 4. Normal appendix. -Outpatient MRCP 07/02/2017 hepatomegaly, enlarged portal vein concerning for portal hypertension, paraesophageal hernia. -Barium swallow 07/27/17 reveals large esophageal hiatal hernia encompassing two thirds of the stomach since significant GERD -CT of the abdomen and aorta 09/11/17 hepatomegaly, large hiatal hernia. Negative CTA of the abdominal aorta -On admission Total bilirubin 0.9, AST 140, ALT 80, alkaline phosphatase 109 lipase 822 -(09/22/17) Total bilirubin 1.0, AST 444, ALT 812, alkaline phosphatase 154 lipase 2075 -(09/23/17) Total bilirubin 0.8, AST 192, ALT 550, alkaline phosphatase 131 lipase 352 -Pt was given IV fluids for hydration - Repeat MRCP 09/21/17: 1. Intrahepatic and extrahepatic biliary ductal dilatation without definite filling defect identified. ERCP may be helpful for further evaluation and possible treatment of this patient if clinically indicated. 2. Cholelithiasis. 3. Hepatosplenomegaly. 4. Large hiatal hernia. - GI was consulted, appreciate input - General surgery consulted, patient known to Dr. Adhikari from outpatient - Patient had NM Hepatobiliary scan which did not show gallbladder after 24 hours - Pt underwent lap kira, liver biopsy, robot assisted paraesophageal hernia repair with gastropexy on 09/25/[address] Adhikari - Pathology is pending - Pt is tolerating clear liquids, planned for diet advancement to full liquids today - Pt with slight cough, CXR (09/25) --> No perceptible pneumothorax. Patchy consolidation and small pleural effusions at both lung bases. - Encourage IS and OOB to chair - Supportive care Diarrhea - Sesolved. Anxiety - Continue home medications The exam, history, and the medical decision-making described in the above note were completed with the assistance of the mid-level provider. I reviewed and agree with the findings presented. I attest that I had a [id number] encounter with the patient on the same day, and personally performed and documented my assessment and findings in the medical record. (2) Pancreatitis Code(s): K85.90 - Acute pancreatitis without necrosis or infection, unspecified Status: Acute (2) Pancreatitis Qualifiers: Chronicity: acute Pancreatitis type: unspecified pancreatitis type Acute pancreatitis complication: unspecified Qualified Code(s): K85.90 - Acute pancreatitis without necrosis or infection, unspecified
[2017-09-26 17:52] LABS: ALT(LFP) 256 U/L (6-29); Apolipoprotein A1(LFP) 146 mg/dL (101-198); Fibrosis Score 0.24; Fibrosis Stage F0-F1; GGT(LFP) 173 U/L (3-65); Necroinflammatory ACT Grade3 A3; Necroinflammatory ACT Score 0.85
[2017-09-26] MEDS: Pantoprazole Inj 40 MG Vial IV.PUSH SCH (17:59)
--- NOTE | 2017-09-26 18:08 | P.PNGI ---
Subjective Interval history: Sit him up in the chair feeling so much better Denies any current pain intake and p.o. fluids well Family present Some mild abdominal soreness but no acute pain Last hemoglobin 14.3 <CamilaFaiza M - Last Filed: 09/26/17 18:05> Physical Exam Vital signs: Vital Signs 09/25/17 18:52 09/25/17 19:00 09/25/17 19:15 Temperature 98.0 F Pulse Rate 96 H 94 H 92 H Respiratory Rate 19 19 18 Blood Pressure 123/62 128/60 126/60 Pulse Oximetry 97 97 97 09/25/17 19:30 09/25/17 19:45 09/25/17 20:00 Temperature Pulse Rate 94 H 93 H 93 H Respiratory Rate 17 18 18 Blood Pressure 121/58 L 123/60 124/61 Pulse Oximetry 95 95 94 L 09/25/17 20:35 09/26/17 00:00 09/26/17 04:00 Temperature 98.2 F 98.2 F 98.1 F Pulse Rate 96 H 87 82 Respiratory Rate 17 16 16 Blood Pressure 127/62 107/59 L 120/66 Pulse Oximetry 94 L 97 98 09/26/17 08:00 09/26/17 12:00 Temperature 97.9 F 97.6 F Pulse Rate 79 70 Respiratory Rate 18 18 Blood Pressure 113/55 L 113/61 Pulse Oximetry 97 96 Intake & Output 09/25/17 09/26/17 09/26/17 18:59 06:59 18:59 Intake Total 3100 / 3100 480 / 480 Output Total 170 / 170 1150 / 1150 Balance 2930 / 2930 -670 / -670 Intake: Oral 300 / 300 480 / 480 Anesthesia Amount 2800 / 2800 Output: Urine 750 / 750 Estimated Blood Loss 20 / 20 Urine Amount (Catheter) 150 / 150 400 / 400 Indwelling Urethral Catheter 150 / 150 400 / 400 Other: Date of Last Bowel Movement 09/24/17 09/24/17 09/24/17 # Bowel Movements 0 - Constitutional no acute distress - Routine HEENT Exam Head: Present: normocephalic, atraumatic ENT: Present: mucous membranes moist - Routine Neck Exam Present: supple - Routine Respiratory Exam Present: decreased breath sounds (No obvious rhonchi) - Routine Cardiovascular Exam Present: RRR - Routine Abdominal Exam Present: tenderness (Mild generalized, soft bowel sounds round, no erythema at incision lines) - Routine Skin Exam Present: intact - Routine Neurological Exam Present: alert - Urinary Catheter Management Indwelling Urethral Catheter Cath placed during this visit: no Reason for continuing: Hourly intake/output <Faiza Jensen - Last Filed: 09/26/17 18:05> Vital signs: Vital Signs 09/26/17 00:00 09/26/17 04:00 09/26/17 08:00 Temperature 98.2 F 98.1 F 97.9 F Pulse Rate 87 82 79 Respiratory Rate 16 16 18 Blood Pressure 107/59 L 120/66 113/55 L Pulse Oximetry 97 98 97 09/26/17 12:00 Temperature 97.6 F Pulse Rate 70 Respiratory Rate 18 Blood Pressure 113/61 Pulse Oximetry 96 Intake & Output 09/26/17 09/26/17 09/27/17 06:59 18:59 06:59 Intake Total 480 / 480 4000 / 4000 Output Total 1150 / 1150 2070 / 2070 Balance -670 / -670 1930 / 1930 Intake: Oral 480 / 480 1200 / 1200 Anesthesia Amount 2800 / 2800 Output: Urine 750 / 750 450 / 450 Estimated Blood Loss 20 / 20 Urine Amount (Catheter) 400 / 400 1600 / 1600 Indwelling Urethral Catheter 400 / 400 1600 / 1600 Other: # Voids 5 Date of Last Bowel Movement 09/24/17 09/24/17 09/24/17 # Bowel Movements 0 0 - Urinary Catheter Management Indwelling Urethral Catheter Cath placed during this visit: no <Calista Foley - Last Filed: 09/26/17 21:26> Results - Labs CBC & Chem 7: 09/24/17 06:45 09/25/17 08:15 Laboratory Results - last 24 hr 09/24/17 09/24/17 06:45 06:45 Haptoglobin 167 Total Bilirubin 0.7 GGT 173 H ALT 256 H Liver Fibrosis Score 0.24 Liver Fibrosis Interp Liver Fibrosis Comment Liver Fibrosis Stage F0-f1 Necroinflammator Score 0.85 Necroinflam Score Cmmt Necroinflammator Grade A3 [id number] 125 Apolipoprotein A-1 146 FREDERIC Titer 1:80 H FREDERIC Pattern Speckled and diffuse H FREDERIC Interpretation Endomysial Ab Titer ND Endomysial IgA Ab ND Tiss Transglutamin IgA Less than 1 Ref Lab Specimen ID [id number] - Imaging Impressions Chest X-Ray 09/25/17 00:00 CONCLUSION: No perceptible pneumothorax. Patchy consolidation and small pleural effusions at both lung bases. <Faiza Jensen - Last Filed: 09/26/17 18:05> - Labs CBC & Chem 7: 09/24/17 06:45 09/25/17 08:15 Laboratory Results - last 24 hr 09/24/17 09/24/17 06:45 06:45 Haptoglobin 167 Total Bilirubin 0.7 GGT 173 H ALT 256 H Liver Fibrosis Score 0.24 Liver Fibrosis Interp Liver Fibrosis Comment Liver Fibrosis Stage F0-f1 Necroinflammator Score 0.85 Necroinflam Score Cmmt Necroinflammator Grade A3 Fumsf-2-Dhuvvtalxvaop 125 Apolipoprotein A-1 146 FREDERIC Titer 1:80 H FREDERIC Pattern Speckled and diffuse H FREDERIC Interpretation Endomysial Ab Titer ND Endomysial IgA Ab ND Tiss Transglutamin IgA Less than 1 Ref Lab Specimen ID [id number] <Calista Foley - Last Filed: 09/26/17 21:26> Assessment and Plan (1) Pancreatitis Status: Acute Code(s): K85.90 - Acute pancreatitis without necrosis or infection, unspecified (2) Choledocholithiasis Status: Acute Code(s): K80.50 - Calculus of bile duct without cholangitis or cholecystitis without obstruction (3) Abdominal pain Status: Acute Code(s): R10.9 - Unspecified abdominal pain (4) Hiatal hernia Status: Acute Code(s): K44.9 - Diaphragmatic hernia without obstruction or gangrene (5) Elevated LFTs Status: Acute Code(s): R94.5 - Abnormal results of liver function studies (6) Diarrhea Status: Acute Code(s): R19.7 - Diarrhea, unspecified - Plan Assessment: - Biliary pancreatitis- Lipase 2224 on 09/22 MRCP (09/21) Intrahepatic and extrahepatic biliary ductal dilatation without definite filling defect identified. ERCP may be helpful for further evaluation and possible treatment of this patient if clinically indicated. Cholelithiasis. Hepatosplenomegaly. Large hiatal hernia. HIDA (09/22) No gallbladder activity. Delayed imaging will be obtained. - Elevated LFTs AST-192 ALT-550 T bili-0.8 alk phos-131 (09/24) Pt planned for cholecystectomy today with intraop cholangiogram and hernia repair. Will await surgery recommendations regarding need for ERCP 09/26/2017 patient is status post lap kira and hiatal hernia repair. She is feeling much better and is doing well in her postop. Checked on patient to support and let her know to follow-up in the GI office if she needs us for any reason. GI will sign off Supportive care. Labs monitored no active bleeding Patient seen per myself and Dr. Foley, this note was written on his behalf <Faiza Jensen - Last Filed: 09/26/17 18:05> (1) Pancreatitis Status: Acute Code(s): K85.90 - Acute pancreatitis without necrosis or infection, unspecified (2) Choledocholithiasis Status: Acute Code(s): K80.50 - Calculus of bile duct without cholangitis or cholecystitis without obstruction (3) Abdominal pain Status: Acute Code(s): R10.9 - Unspecified abdominal pain (4) Hiatal hernia Status: Acute Code(s): K44.9 - Diaphragmatic hernia without obstruction or gangrene (5) Elevated LFTs Status: Acute Code(s): R94.5 - Abnormal results of liver function studies (6) Diarrhea Status: Acute Code(s): R19.7 - Diarrhea, unspecified - Attending Attestation Nothing to add from GI point of view. Please notify us if needed again. <Calista Foley - Last Filed: 09/26/17 21:26> <Faiza Jensen - Last Filed: 09/26/17 18:05> (1) Pancreatitis Qualifiers: Chronicity: acute Pancreatitis type: unspecified pancreatitis type Acute pancreatitis complication: unspecified Qualified Code(s): K85.90 - Acute pancreatitis without necrosis or infection, unspecified <Calista Foley - Last Filed: 09/26/17 21:26> (1) Pancreatitis Qualifiers: Chronicity: acute Pancreatitis type: unspecified pancreatitis type Acute pancreatitis complication: unspecified Qualified Code(s): K85.90 - Acute pancreatitis without necrosis or infection, unspecified
[2017-09-27 03:50] LABS: IgA Serum 132 mg/dL (81-463); Tissue Transglutaminase Ab IgG ND U/mL (())
--- NOTE | 2017-09-27 10:20 | P.PNIM ---
Subjective Interval history: c/o some sob this AM less pain overall asking for shower Physical Exam Vital signs: Vital Signs 09/26/17 12:00 09/26/17 20:00 09/27/17 00:10 Temperature 97.6 F 98.7 F 98.7 F Pulse Rate 70 89 84 Respiratory Rate 18 16 16 Blood Pressure 113/61 108/54 L 130/63 Pulse Oximetry 96 95 94 L 09/27/17 05:30 Temperature Pulse Rate Respiratory Rate 15 Blood Pressure Pulse Oximetry Intake & Output 09/26/17 09/27/17 09/27/17 18:59 06:59 18:59 Intake Total 4720 / 4720 Output Total 2070 / 2070 Balance 2650 / 2650 Intake: Oral 1920 / 1920 Anesthesia Amount 2800 / 2800 Output: Urine 450 / 450 Estimated Blood Loss 20 / 20 Urine Amount (Catheter) 1600 / 1600 Indwelling Urethral Catheter 1600 / 1600 Other: # Voids 3 Date of Last Bowel Movement 09/24/17 09/24/17 # Bowel Movements 0 in chair still with some discomfort with deep breathing heart reg lung basilar crackles bilaterally abd s/bs ext no edema - Urinary Catheter Management Indwelling Urethral Catheter Cath placed during this visit: no Reason for continuing: Hourly intake/output Results - Labs CBC & Chem 7: 09/24/17 06:45 09/25/17 08:15 Laboratory Results - last 24 hr 09/24/17 09/24/17 06:45 06:45 Haptoglobin 167 Total Bilirubin 0.7 GGT 173 H ALT 256 H Liver Fibrosis Score 0.24 Liver Fibrosis Interp Liver Fibrosis Comment Liver Fibrosis Stage F0-f1 Necroinflammator Score 0.85 Necroinflam Score Cmmt Necroinflammator Grade A3 [id number] 125 Apolipoprotein A-1 146 IgA 132 FREDERIC Titer 1:80 H FREDERIC Pattern Speckled and diffuse H FREDERIC Interpretation Endomysial Ab Titer ND Endomysial IgA Ab ND Tiss Transglutamin IgG ND Tiss Transglutamin IgA Less than 1 Ref Lab Specimen ID [id number] Assessment and Plan - Assessment (1) Abdominal pain Code(s): R10.9 - Unspecified abdominal pain Status: Acute Plan: Abdominal pain Gallstone Pancreatitis Patient presents emergency department after having an episode of severe abdominal pain with dry heaves. Patient has been having intermittent abdominal pain for the past 7 months which is been worse over the past 3-4 months. Patient has a paraesophageal hernia has been followed by Dr. Adhikari and was instructed to stay on a liquid diet April 07 but this morning had an organic bagel. -Abdomen/Pelvis CT (09/21/17): 1. Diffuse intrahepatic and extrahepatic ductal dilatation extending centrally to the level of the ampulla. Etiology is unclear. 2. Splenomegaly. 3. Large hiatal hernia containing large portion of the stomach. 4. Normal appendix. -Outpatient MRCP 07/02/2017 hepatomegaly, enlarged portal vein concerning for portal hypertension, paraesophageal hernia. -Barium swallow 07/27/17 reveals large esophageal hiatal hernia encompassing two thirds of the stomach since significant GERD -CT of the abdomen and aorta 09/11/17 hepatomegaly, large hiatal hernia. Negative CTA of the abdominal aorta -On admission Total bilirubin 0.9, AST 140, ALT 80, alkaline phosphatase 109 lipase 822 -(09/22/17) Total bilirubin 1.0, AST 444, ALT 812, alkaline phosphatase 154 lipase 2075 -(09/23/17) Total bilirubin 0.8, AST 192, ALT 550, alkaline phosphatase 131 lipase 352 -Pt was given IV fluids for hydration - Repeat MRCP 09/21/17: 1. Intrahepatic and extrahepatic biliary ductal dilatation without definite filling defect identified. ERCP may be helpful for further evaluation and possible treatment of this patient if clinically indicated. 2. Cholelithiasis. 3. Hepatosplenomegaly. 4. Large hiatal hernia. - GI was consulted, appreciate input - General surgery consulted, patient known to Dr. Adhikari from outpatient - Patient had NM Hepatobiliary scan which did not show gallbladder after 24 hours - Pt underwent lap kira, liver biopsy, robot assisted paraesophageal hernia repair with gastropexy on 09/25/[address] Adhikari - Pathology is pending - Pt is tolerating liquids, - Pt with slight cough, CXR (09/25) --> No perceptible pneumothorax. Patchy consolidation and small pleural effusions at both lung bases. pt with positive fluid balance on i/o, c/o some sob, clearly has some degree of atelectasis but will give dose lasix for pulm edema lower lungs. Diarrhea - Sesolved. Anxiety - Continue home medications
--- NOTE | 2017-09-27 10:31 | XR ---
EXAM DATE: 09/27/2017 10:10 AM EDT AGE/SEX: 62 years / Female INDICATIONS: Shortness of breath since surgery on Sunday. CLINICAL DATA: This is the patient's initial encounter. Patient reports that signs and symptoms have been present for 1 day and indicates a pain score of 0/10. MEDICAL/SURGICAL HISTORY: None. . Tubal ligation. Inguinal hernia repair. COMPARISON: [facility] – [place], CHEST 1V SINGLE AP, 09/25/2017. . FINDINGS: The cardiac silhouette is normal in transverse diameter. There is left lower lobe atelectasis versus pneumonia. There is subsegmental atelectasis in the right base. There is resolution of the previously seen pulmonary edema. CONCLUSION: Resolution of the previously seen pulmonary edema Bibasilar atelectasis left greater than right Electronically signed by: Sae Zimmer MD 09/27/2017 10:30 AM EDT
[2017-09-27] MEDS: Sertraline 100 MG Tablet PO SCH (11:35)
[2017-09-27] MEDS: Venlafaxine XR 37.5 MG Capsule PO SCH (11:35)
--- NOTE | 2017-09-27 13:24 | P.PNGS ---
Subjective Interval history: Some SOB this am. Splinting due to pain. Can't take PO narcotics due to dizziness. On ultram. Sat up in chair all am. Tolerating fulls. Physical Exam Vital signs: Vital Signs 09/26/17 20:00 09/27/17 00:10 09/27/17 05:30 Temperature 98.7 F 98.7 F Pulse Rate 89 84 Respiratory Rate 16 16 15 Blood Pressure 108/54 L 130/63 Pulse Oximetry 95 94 L Intake & Output 09/26/17 09/27/17 09/27/17 18:59 06:59 18:59 Intake Total 4720 / 4720 Output Total 0 / 2070 Balance 2650 / 2650 Intake: Oral 1920 / 1920 Anesthesia Amount 2800 / 2800 Output: Urine 450 / 450 Estimated Blood Loss 20 / 20 Urine Amount (Catheter) 1600 / 1600 Indwelling Urethral Catheter 1600 / 1600 Other: # Voids 3 Date of Last Bowel Movement 09/24/17 09/24/17 # Bowel Movements 0 Narrative: NAD Abd soft post op ttp, inc c/d/i - Urinary Catheter Management Indwelling Urethral Catheter Cath placed during this visit: no Reason for continuing: Hourly intake/output Assessment and Plan - Assessment (1) Gallstones Code(s): K80.20 - Calculus of gallbladder without cholecystitis without obstruction Status: Acute (2) Choledocholithiasis Code(s): K80.50 - Calculus of bile duct without cholangitis or cholecystitis without obstruction Status: Acute (3) Hiatal hernia Code(s): K44.9 - Diaphragmatic hernia without obstruction or gangrene Status: Acute (4) Acute gallstone pancreatitis Code(s): K85.10 - Biliary acute pancreatitis without necrosis or infection Status: Acute - Plan POD 2 s/p lap kira, liver biopsy, robot assisted paraesophageal hernia repair with gastropexy. Some SOB received lasix this am. Add toradol for pain short course. Will need to stay overnight for pain control and SOB. Possible dc in am.
[2017-09-27] MEDS: Ketorolac Inj 30 MG/ML (IVP) Vial IV.PUSH SCH ×2 (14:38→21:52)
[2017-09-28] MEDS: Ketorolac Inj 30 MG/ML (IVP) Vial IV.PUSH SCH ×2 (03:25→08:58)
--- NOTE | 2017-09-28 07:58 | P.PNGS ---
Subjective Interval history: She feels significantly better today. Denies shortness of breath. Pain is well controlled on the toradol. Physical Exam Vital signs: Vital Signs 09/27/17 08:00 09/27/17 12:00 09/27/17 20:00 Temperature 97.7 F 98.3 F 98.1 F Pulse Rate 82 87 79 Respiratory Rate 16 16 20 Blood Pressure 116/62 139/68 107/61 Pulse Oximetry 97 98 94 L 09/27/17 23:17 09/28/17 03:38 Temperature 97.8 F 97.3 F L Pulse Rate 76 63 Respiratory Rate 18 18 Blood Pressure 100/54 L 125/56 L Pulse Oximetry 94 L 94 L Intake & Output 09/27/17 09/28/17 09/28/17 18:59 06:59 18:59 Intake Total 480 / 480 Balance 480 / 480 Weight 84.8 kg Intake: Oral 480 / 480 Other: # Voids 2 Date of Last Bowel Movement 09/27/17 # Bowel Movements 0 Narrative: NAD Nonlabored breathing Abd: soft, inc c/d/i - Urinary Catheter Management Indwelling Urethral Catheter Cath placed during this visit: no Reason for continuing: Hourly intake/output Assessment and Plan - Assessment (1) Gallstones Code(s): K80.20 - Calculus of gallbladder without cholecystitis without obstruction Status: Acute (2) Choledocholithiasis Code(s): K80.50 - Calculus of bile duct without cholangitis or cholecystitis without obstruction Status: Acute (3) Hiatal hernia Code(s): K44.9 - Diaphragmatic hernia without obstruction or gangrene Status: Acute (4) Acute gallstone pancreatitis Code(s): K85.10 - Biliary acute pancreatitis without necrosis or infection Status: Acute - Plan POD 3 s/p lap kira, liver biopsy, robot assisted paraesophageal hernia repair with gastropexy. Doing well post op now. Pain well controlled with toradol. D/w Dr. Ocampo will dc home this morning. F/u in 2 weeks. Soft diet recommended.
[2017-09-28] MEDS: Venlafaxine XR 37.5 MG Capsule PO SCH (08:58)
[2017-09-28] MEDS: Sertraline 100 MG Tablet PO SCH (08:58)
--- NOTE | 2017-09-28 09:09 | P.DS ---
Date of admission: 09/21/17 19:02 Primary care physician: Radha Rodriguez Anticipated date of discharge: 09/28/17 Brief History from admission: This is a 62-year-old female patient with past medical history which includes anxiety acid reflux and paraesophageal hernia being followed by Dr. Giang gastroenterology and Dr. Adhikari general surgery. Patient reports that since March she has been having intermittent abdominal pain which she believes is been worse over the past 3 months. Patient was grocery shopping this AM had a bowel movement which was followed by severe aching/stabbing abdominal pain causing her to lay on the bathroom floor of the grocery store. Patient reports associated nausea and dry heaves. Patient has been on a liquid diet per Dr. Adhikari instructions since April 07 but today had an organic bagel for breakfast. Patient denies chest pain or shortness of breath. Past medical history: anxiety acid reflux and paraesophageal hernia being followed by Dr. Giang gastroenterology and Dr. Adhikari general surgery Past surgical history: Tubal ligation, bilateral inguinal hernia repair as a child Family medical history father had prostate cancer and bladder cancer as well as hypertension Mother had diabetes cardiac disease diverticulosis and hiatal hernia Social history: Patient is lives with her Works in medical records Rare EtOH use 1-2 times per year Denies tobacco use now in the past Denies illicit drug use DS: Diagnosis - Discharge Diagnosis (1) Abdominal pain Status: Acute (2) Gallstone pancreatitis Status: Acute (3) Paraesophageal hernia Status: Acute DS: Medications - Discharge Medications Prescriptions: ketorolac 10 mg PO Q6H PRN #10 tab PRN Reason: Pain DS: Summary Hospital Course: Assessment and Plan - Assessment (1) Abdominal pain Code(s): R10.9 - Unspecified abdominal pain Status: Acute Plan: Abdominal pain Gallstone Pancreatitis Patient presents emergency department after having an episode of severe abdominal pain with dry heaves. Patient has been having intermittent abdominal pain for the past 7 months which is been worse over the past 3-4 months. Patient has a paraesophageal hernia has been followed by Dr. Adhikari and was instructed to stay on a liquid diet April 07 but this morning had an organic bagel. -Abdomen/Pelvis CT (09/21/17): 1. Diffuse intrahepatic and extrahepatic ductal dilatation extending centrally to the level of the ampulla. Etiology is unclear. 2. Splenomegaly. 3. Large hiatal hernia containing large portion of the stomach. 4. Normal appendix. -Outpatient MRCP 07/02/2017 hepatomegaly, enlarged portal vein concerning for portal hypertension, paraesophageal hernia. -Barium swallow 07/27/17 reveals large esophageal hiatal hernia encompassing two thirds of the stomach since significant GERD -CT of the abdomen and aorta 09/11/17 hepatomegaly, large hiatal hernia. Negative CTA of the abdominal aorta -On admission Total bilirubin 0.9, AST 140, ALT 80, alkaline phosphatase 109 lipase 822 -(09/22/17) Total bilirubin 1.0, AST 444, ALT 812, alkaline phosphatase 154 lipase 2075 -(09/23/17) Total bilirubin 0.8, AST 192, ALT 550, alkaline phosphatase 131 lipase 352 -Pt was given IV fluids for hydration - Repeat MRCP 09/21/17: 1. Intrahepatic and extrahepatic biliary ductal dilatation without definite filling defect identified. ERCP may be helpful for further evaluation and possible treatment of this patient if clinically indicated. 2. Cholelithiasis. 3. Hepatosplenomegaly. 4. Large hiatal hernia. - GI was consulted, appreciate input - General surgery consulted, patient known to Dr. Adhikari from outpatient - Patient had NM Hepatobiliary scan which did not show gallbladder after 24 hours - Pt underwent lap kira, liver biopsy, robot assisted paraesophageal hernia repair with gastropexy on 09/25/[address] Adhikari - Pathology is pending - Pt is tolerating liquids, - Pt with slight cough, CXR (09/25) --> No perceptible pneumothorax. Patchy consolidation and small pleural effusions at both lung bases. - 09/27:pt with positive fluid balance on i/o, c/o some sob, clearly has some degree of atelectasis but will give dose lasix for pulm edema lower lungs. -09/28: pT feels great. no sob. pain controlled. alex diet. dc home with f/u Dr Adhikari Diarrhea - resolved. Anxiety - Continue home medications - Time Spent with Patient Total time spent providing and/or coordinating discharge services: - Quality: VTE Deep Vein Thrombosis/Pulmonary Embolism Present on Admission: No Exam Vital signs: Vital Signs 09/27/17 12:00 09/27/17 20:00 09/27/17 23:17 Temperature 98.3 F 98.1 F 97.8 F Pulse Rate 87 79 76 Respiratory Rate 16 20 18 Blood Pressure 139/68 107/61 100/54 L Pulse Oximetry 98 94 L 94 L 09/28/17 03:38 Temperature 97.3 F L Pulse Rate 63 Respiratory Rate 18 Blood Pressure 125/56 L Pulse Oximetry 94 L Intake & Output 09/27/17 09/28/17 09/28/17 18:59 06:59 18:59 Intake Total 480 / 480 Balance 480 / 480 Weight 84.8 kg Intake: Oral 480 / 480 Other: # Voids 2 Date of Last Bowel Movement 09/27/17 # Bowel Movements 0 heart reg lung cta abd s/nt ext no edea Results Procedures completed during hospitalization: none Labs on day of discharge: Labs from last 24 hours 09/24/17 06:45 Mitochondria M2 IgG Ab Less than 20.0 Celiac Disease Interp - Impressions ITS Impressions Cholangiopancreatography MRI 09/21/17 00:00 CONCLUSION: 1. Intrahepatic and extrahepatic biliary ductal dilatation without definite filling defect identified. ERCP may be helpful for further evaluation and possible treatment of this patient if clinically indicated. 2. Cholelithiasis. 3. Hepatosplenomegaly. 4. Large hiatal hernia. Abdomen/Pelvis CT 09/21/17 11:19 CONCLUSION: 1. Diffuse intrahepatic and extrahepatic ductal dilatation extending centrally to the level of the ampulla. Etiology is unclear. Consider MRCP examination for further evaluation as clinically indicated. 2. Splenomegaly. 3. Large hiatal hernia containing large portion of the stomach. 4. Normal appendix. Hepatobiliary Scan Nuclear Medicine 09/22/17 12:19 CONCLUSION: 1. No gallbladder activity. Delayed imaging will be obtained. Chest X-Ray 09/27/17 09:54 CONCLUSION: Resolution of the previously seen pulmonary edema Bibasilar atelectasis left greater than right Discharge Plan - Discharge Disposition Patient Disposition: 01 Discharge Home - Discharge Condition Condition: Stable - Discharge Order Discharge Orders: Discharge Order (Routine); Ordered 09/28/17 Ordered By: Velasquez Ocampo General Surgery Clear for Discharge (Routine); Ordered 09/28/17 Ordered By: Daniel Adhikari - Discharge Details Anticipated Discharge Date: 09/28/17 - Physicians Team Primary Care Provider: Radha Rodriguez Attending Provider: Kishore Amaro Other Providers: Eneida Mcdaniels MD ; Moises Shanks MD ; Daniel Adhikari MD
== END 2017-09-28 11:24 | disposition home or self-care (01) ==
LOC: NEPD 10:53 → NEDA 10:53 → NEPHCDU 19:00 → N06 09-22 14:27
PROVIDERS: ADMIT Hospitalist; ATTEND Hospitalist